=== PATIENT | male | born 1950 | race Caucasian/White ===

== ENCOUNTER 2020-02-10 08:33 | Outpatient (REF) | payer MEDICARE, SELFPAY ==
[2020-02-10 13:18] LABS: MANUAL DIFF FLAG NO
[2020-02-10 13:29] LABS: Basophils Percent Auto 0.6 % (0-2); Eosinophils Absolute Auto 0.1 X10*3/uL (0.0-0.4); Eosinophils Percent Auto 2.3 % (0-4); Hematocrit 48.7 % (42-52); Hemoglobin 16.7 g/dl (14.0-18.0); Imm Gran Abs Auto 0.01 X10*3/uL (0.00-0.03); Imm Gran Pct Auto 0.2 % (0.0-0.4); Lymphocytes Absolute Auto 1.4 X10*3/uL (1.2-4.9); Mean Corpuscular HGB Conc 34.3 g/dl (31.0-36.0); Mean Corpuscular Hemoglobin 32.3 pg (27.0-33.0); Mean Corpuscular Volume 94.2 fL (80-98); Mean Platelet Volume 9.6 fL (9.4-12.4); Monocytes Absolute Auto 0.5 X10*3/uL (0.1-1.2); Monocytes Percent Auto 10.6 % (2-11); Neutrophils Absolute Auto 2.7 X10*3/uL (2.0-8.3); Neutrophils Percent Auto 56.3 % (45-73); Platelet Count 170 X10*3/uL (160-400); Red Blood Count 5.17 X10*6/uL (4.60-5.80); Red Cell Distribution Width 12.8 % (11.0-16.0); White Blood Count 4.8 X10*3/uL (4.8-10.8)
[2020-02-10 14:27] LABS: Alanine Aminotransferase 15 U/L (0-40); Albumin Level 4.3 g/dL (3.5-5.0); Alkaline Phosphatase 69 U/L (39-117); Anion Gap 14 (12-20); Aspartate Amino Transferase 20 U/L (5-37); Bilirubin Total 0.9 mg/dL (0.0-1.0); Blood Urea Nitrogen 17 mg/dL (9-16); Calcium 8.3 mg/dL (8.4-10.2); Carbon Dioxide 26 mmol/L (22-29); Chloride 106 mmol/L (96-108); Cholesterol 186 mg/dL; Estimated Glomerular Filt Rate > 60; Glucose Fasting 84 mg/dL (60-99); HDL Cholesterol 46 mg/dL; LDL Cholesterol Calculated 119 mg/dl; Potassium 4.5 mmol/l (3.3-5.1); Sodium 141 mmol/L (135-145); Total Protein 6.6 g/dL (6.5-8.0); Triglycerides 108 mg/dL
[2020-02-10 14:53] LABS: Prostate Specific Antigen 4.24 ng/mL (<0.05-4.0); Thyroid Stimulating Hormone 2.55 uIU/mL (0.32-4.0); Vitamin D 25-OH Total 37.9 ng/mL (>30)
== END 2020-02-10 08:34 | disposition home or self-care (01) ==
LOC: HO.HMGCLDS 08:33
PROVIDERS: PCP Internal Medicine; Visit Provider Internal Medicine
DX: F32.9 Major depressive disorder, single episode, unspecified (principal); N40.1 Benign prostatic hyperplasia with lower urinary tract symptoms; R09.81 Nasal congestion
CPT/HCPCS: 36415; 80053; 80061; 82306; 84153; 84443; 85025

== ENCOUNTER 2020-02-20 08:26 | Outpatient (REF) | payer MEDICARE, SELFPAY ==
--- NOTE | 2020-02-20 08:29 | CT_ITS ---
EXAMINATION: CT CHEST WITHOUT CONTRAST CLINICAL INFORMATION: Pulmonary nodule follow-up COMPARISON: Previous chest CT March 2019 TECHNIQUE: Multidetector volumetric CT imaging of the chest was done. Axial MIP volume rendering provided. Sagittal and coronal reformatted images were obtained. This CT examination was performed using dose optimization techniques as appropriate, variously including the following: *Automated exposure control *Adjustment of mA and/or kV according to patient size (this includes techniques or standardized protocols for targeted exams where dose is matched to indication/reason for exam; i.e. extremities or head) *Use of iterative reconstruction technique DLP: 201 mGy-cm FINDINGS: LUNGS: There is mild biapical pleural and parenchymal scarring. There is a 3 mm peripheral or subpleural right upper lobe nodule axial image 127 series 7 that is stable. There is a 5 x 8 mm peripheral or subpleural irregularly-shaped abnormal parenchymal density in the right middle lobe nodule adjacent to the major fissure and question an accessory fissure fissure axial image 385 series 7 that is stable. Sagittal and coronal and coronal reconstructions this appears linear suggestive of linear scarring or chronic subsegmental atelectasis. There is new linear scarring or subsegmental atelectasis in the inferior lingula MEDIASTINUM: There is mild coronary artery calcification. The mediastinum is otherwise normal. PLEURA: There is no pleural effusion. No pleural mass or thickening. AXILLA: No lymphadenopathy. UPPER ABDOMEN: Unremarkable. 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 OSSEOUS STRUCTURES: There are degenerative changes of the spine. There may be slight loss of height of the inferior endplate of the L1 vertebral body. This is unchanged. CT/CT chest wo con IMPRESSION: Mild biapical pleural parenchymal scarring. Stable small right upper lobe nodule. Stable probable scarring or subsegmental atelectasis in the right middle lobe. New linear scarring or subsegmental atelectasis in the inferior segment of the lingula. Mild coronary artery calcification.
== END 2020-02-20 08:27 | disposition home or self-care (01) ==
LOC: HO.CT 08:26
PROVIDERS: PCP Internal Medicine; Visit Provider Surgery
DX: R91.1 Solitary pulmonary nodule (principal)
CPT/HCPCS: 71250

== ENCOUNTER → 2020-03-16 11:03 | Outpatient (BNVA) | payer MEDICARE, SELFPAY | PROVIDERS: PCP Internal Medicine; Visit Provider Surgery | DX: R91.1 Solitary pulmonary nodule (principal) | CPT/HCPCS: 99214 ==

== ENCOUNTER 2020-05-29 08:26 | Outpatient (REF) | payer MEDICARE, SELFPAY ==
--- NOTE | ~2020-05-29 | CT_ITS ---
EXAMINATION: CT CHEST WITHOUT CONTRAST CLINICAL INFORMATION: Solitary pulmonary nodule COMPARISON: Previous chest CT scans most recent February 2020 TECHNIQUE: Multidetector volumetric CT imaging of the chest was done. Axial MIP volume rendering provided. Sagittal and coronal reformatted images were obtained. This CT examination was performed using dose optimization techniques as appropriate, variously including the following: *Automated exposure control *Adjustment of mA and/or kV according to patient size (this includes techniques or standardized protocols for targeted exams where dose is matched to indication/reason for exam; i.e. extremities or head) *Use of iterative reconstruction technique DLP: 196 mGy-cm FINDINGS: LUNGS: There is biapical pleural and parenchymal scarring. There is a 3 mm peripheral or subpleural posterior right upper lobe nodule axial image 132 series 8 that is stable. There is an irregularly-shaped abnormal parenchymal density in the right middle lobe near the major fissure. This measures 4 x 9 mm axial image 384 series 8 and does not appear appreciably changed from previous exams. On sagittal and coronal reconstructed images this appears linear and possibly tracks along an accessory fissure. No new pulmonary nodule is seen. No intratracheal or endobronchial lesion is seen. MEDIASTINUM: There is mild coronary artery calcification. The mediastinum is otherwise normal. PLEURA: There is no pleural effusion. No pleural mass or thickening. AXILLA: No lymphadenopathy. UPPER ABDOMEN: Unremarkable. OSSEOUS STRUCTURES: There is mild pectus deformity of the chest. There are degenerative changes of the spine. CT/CT chest wo con IMPRESSION: Stable parenchymal density in the right middle lobe, biapical pleural and parenchymal scarring and small right upper lobe nodule. Mild coronary artery calcification.
== END 2020-05-29 08:27 | disposition home or self-care (01) ==
LOC: HO.CT 08:26
PROVIDERS: Visit Provider Surgery
DX: R91.1 Solitary pulmonary nodule (principal)
CPT/HCPCS: 71250

== ENCOUNTER → 2020-06-15 11:13 | Outpatient (BNVA) | payer MEDICARE, SELFPAY | PROVIDERS: PCP Internal Medicine; Visit Provider Surgery | DX: R91.1 Solitary pulmonary nodule (principal); Z79.899 Other long term (current) drug therapy ==

== ENCOUNTER 2021-01-15 07:42 | Emergency (ER) | payer MEDICARE, SELFPAY ==
--- NOTE | ~2021-01-15 | CT_ITS ---
EXAMINATION: CT HIP WITHOUT CONTRAST, LEFT CLINICAL INFORMATION: Pain. Unable to ambulate. Negative x-rays. COMPARISON: None TECHNIQUE: Axial images through the left hip without contrast. Sagittal and coronal reconstructions on the technologist workstation were performed. This CT examination was performed using dose optimization techniques as appropriate, variously including the following: *Automated exposure control *Adjustment of mA and/or kV according to patient size (this includes techniques or standardized protocols for targeted exams where dose is matched to indication/reason for exam; i.e. extremities or head) *Use of iterative reconstruction technique DLP: 174 mGy-cm FINDINGS: There is moderate arthritis at the left hip joint with joint space narrowing, osteophyte formation and some subchondral cyst formation. No fracture, dislocation or bone lesion is seen. Surrounding soft tissues are normal. There is no joint effusion. Prostate gland is enlarged and protrudes into the base of the bladder. There is diverticulosis of the colon. No ascites or adenopathy is seen. No hernia is seen. There is mild skin thickening and stranding of the fat in the left inferior buttock. CT/CT hip LT wo con IMPRESSION: Left hip arthritis. No fracture or dislocation seen.
[2021-01-15 07:50] VITALS: BP 160/84; BP 161/78; PULSE 89; PULSE 91; RESP 18; TEMP 36.7; O2SAT 96; O2SAT 98; BMI 25.4
--- NOTE | 2021-01-15 07:58 | ED.LOWEXIN ---
HPI - Extremity Injury (Lower) General Chief Complaint: Extremity Injury, Lower Stated Complaint: LEFT HIP PAIN, NO RECENT INJURY Time Seen by Provider: 01/15/21 07:54 Source: patient and EMS Mode of arrival: EMS Limitations: no limitations History of Present Illness complaint: hip injury Onset (ago): week(s) (2) Injury: Left: hip Type of Injury: other (twisting type injury) Place: street/outdoors Severity: moderate Relieving factors: nothing Exacerbating factors: movement and palpation Context: other (injury while outside gardening) Associated symptoms: other (pain will not go away) Other symptoms: none Treatments prior to arrival: other (tried prednisone and flexeril) Related Data Home Medications Medication Instructions Recorded Confirmed flu vac qv 2019(18yr up)rc(PF) ml IM 03/16/20 06/15/20 naproxen 500 mg tablet 500 mg PO BID 03/16/20 06/15/20 sertraline 100 mg tablet 100 mg PO DAILY 03/16/20 06/15/20 tamsulosin 0.4 mg capsule 0.4 mg PO DAILY 03/16/20 06/15/20 Previous Rx's Medication Instructions Recorded cyclobenzaprine 5 mg tablet 5 mg PO TID PRN #10 tab 01/10/21 prednisone 20 mg tablet 20 mg PO DAILY 5 Days #5 tab 01/10/21 diclofenac sodium 1 % topical gel 2 g TOPICAL QID #100 g 01/15/21 (Voltaren Arthritis Pain) Allergies Allergy/AdvReac Type Severity Reaction Status Date / Time Sulfa (Sulfonamide Allergy Unknown hives Verified 01/10/21 11:39 Antibiotics) sulfamethoxazole Allergy Unknown HIVES Verified 01/10/21 11:39 [From Bactrim] trimethoprim [From Bactrim] Allergy Unknown HIVES Verified 01/10/21 11:39 Review of Systems Review of Systems: Constitutional : No Fever, No Chills ENT/Mouth : No Ear Pain, No Hoarseness, No sore throat Eyes: No Eye Pain, No Swelling, No Redness, No Foreign Body Cardiovascular : No Chest Pain, No SOB Respiratory : No Cough, No Dyspnea Gastrointestinal : No Nausea, No Vomiting, No Diarrhea, No abdominal Pain Genitourinary : No Dysuria, No Hematuria Musculoskeletal : positive joint pain, No Myalgias, No Joint Swelling Skin : No Skin lacerations, No rash Neuro : No Weakness, No Numbness, No Loss of Consciousness, No Dizziness, No Headache Psych : No Anxiety/Panic, No Depression Heme/Lymph: no easy bruising, no Lymphadenopathy Endocrine : No Polyuria, No Polydipsia All other systems reviewed and are negative [facility] Past Medical History Attestation statement: The following information was validated with the patient. Medical History BPH (benign prostatic hyperplasia) Depressed Social History Social History (Updated 01/15/21 @ 08:09 by Shayy Brown DO) Alcohol intake: never Patient Tobacco Use Status: Never used Tobacco Use of substances other than those prescribed or required for medical reasons: No Advance Directives: Yes Advance Directives Information Provided: Yes Advance Directives on File: No Physical Exam Vital Signs: Vital Signs: Last Vital Signs Temp 98.1 F 01/15/21 07:50 Pulse 86 01/15/21 09:37 Resp 18 01/15/21 07:50 BP 161/78 H 01/15/21 07:50 Pulse Ox 98 01/15/21 07:50 Body Mass Index 25.4 Appearance: Alert. Oriented X3. No acute distress. Eyes: Pupils equal, round and reactive to light. ENT: Pharynx normal. Neck: Normal inspection. Neck supple. CVS: Normal heart rate and rhythm. Pulses normal. Respiratory: No respiratory distress. Breath sounds normal. Abdomen: Soft and nontender. no hernia mass felt Skin: Skin warm and dry. Normal skin color. Normal skin turgor. Extremities: No lower extremity edema. No calf ttp L hip ttp along lateral aspect no contusion seen Neuro: Oriented X 3. No motor deficit. No sensory deficit. Course Course Course Narrative: CT hip negative, stable for DC MDM - Extremity Injury (Lower) MDM Narrative Medical decision making narrative: 70 yo male with hx of back pain and pulmonary nodules comes in with c/o L hip pain for a couple of weeks - at this time no hernia noted, distal NV intact, no signs of infection, CT scan for occult fracture/mass ordered. Dispo per results and findings. Discharge Plan Discharge Clinical Impression: Arthralgia of hip Qualifiers: Laterality: left Qualified Code(s): M25.552 - Pain in left hip Patient Disposition: Home, Self-Care Instructions: Arthralgia (ED), Hip Pain (ED) Additional Instructions: return to ED for any worsening symptoms or concerns There is moderate arthritis at the left hip joint with joint space narrowing, osteophyte formation and some subchondral cyst formation. No fracture, dislocation or bone lesion is seen. Surrounding soft tissues are normal. There is no joint effusion. Prescriptions: New diclofenac sodium [Voltaren Arthritis Pain] 1 % gel 2 g topical QID Qty: 100 RF: 0 No Action prednisone 20 mg tablet 20 mg PO DAILY 5 Days Qty: 5 RF: 0 cyclobenzaprine 5 mg tablet 5 mg PO TID PRN (Reason: muscle spasm) Qty: 10 RF: 0 sertraline 100 mg tablet 100 mg PO DAILY RF: 0 tamsulosin 0.4 mg capsule 0.4 mg PO DAILY RF: 0 Flublok Quad [id number] (PF) 180 mcg (45 mcg x 4)/0.5 mL syringe IM RF: 0 naproxen 500 mg tablet 500 mg PO BID RF: 0 Referrals: Colton Wang MD, DO [Primary Care Provider] - 2 days (if not better)
[2021-01-15 09:37] VITALS: PULSE 86
== END 2021-01-15 10:42 | disposition home or self-care (01) ==
PROVIDERS: Emergency Provider Emergency Medicine; PCP Internal Medicine
DX: S73.102A Unspecified sprain of left hip, initial encounter (principal); M25.552 Pain in left hip; M54.50 Low back pain, unspecified; X50.1XXA Overexertion from prolonged static or awkward postures, initial encounter; Y93.9 Activity, unspecified; Y92.9 Unspecified place or not applicable; Y99.9 Unspecified external cause status; Z79.899 Other long term (current) drug therapy
CPT/HCPCS: 73700; 99284

== ENCOUNTER 2021-01-31 08:19 | Outpatient (REF) | payer MEDICARE, SELFPAY ==
--- NOTE | ~2021-01-31 | XR_ITS ---
EXAMINATION: XR PELVIS CLINICAL INFORMATION: Pain COMPARISON: 01/15/2021 TECHNIQUE: AP view of the pelvis. FINDINGS: No fracture or dislocation. The hips are well aligned. Mild degenerative change of both hips with subchondral sclerosis. The pelvic rim is intact. The sacroiliac joints and pubic symphysis are intact. Nonobstructive bowel gas pattern. XR/XR pelvis 1-2V IMPRESSION: Mild degenerative changes of the hips.
== END 2021-01-31 08:20 | disposition home or self-care (01) ==
LOC: HO.HOSX 08:19
PROVIDERS: PCP Internal Medicine; Visit Provider Orthopaedic Surgery
DX: M54.16 Radiculopathy, lumbar region (principal)
CPT/HCPCS: 72170; 99212

== ENCOUNTER 2021-02-18 07:30 | Outpatient (REF) | payer MEDICARE, SELFPAY ==
[2021-02-18 11:42] LABS: MANUAL DIFF FLAG NO
[2021-02-18 11:47] LABS: Appearance Urine HAZY; Color Urine YELLOW; Glucose Urine UA NEG (NEG); Leukocyte Esterase Urine NEG (NEG); Nitrite Urine NEG (NEG); PH 6.5 (5.0-8.0); Urine Blood NEG (NEG); Urine Ketones NEG (NEG); Urine Protein NEG (NEG-TRACE)
[2021-02-18 11:50] LABS: Basophils Absolute Auto 0.1 X10*3/uL (0.0-0.2); Basophils Percent Auto 0.8 % (0-2); Eosinophils Absolute Auto 0.1 X10*3/uL (0.0-0.4); Eosinophils Percent Auto 0.7 % (0-4); Hematocrit 46.4 % (42.0-52.0); Hemoglobin 15.9 g/dl (14.0-18.0); Imm Gran Abs Auto 0.02 X10*3/uL (0.00-0.03); Imm Gran Pct Auto 0.3 % (0.0-0.4); Lymphocytes Absolute Auto 1.8 X10*3/uL (1.2-4.9); Lymphocytes Percent Auto 23.7 % (20-40); Mean Corpuscular HGB Conc 34.3 g/dl (31.0-36.0); Mean Corpuscular Hemoglobin 31.7 pg (27.0-33.0); Mean Corpuscular Volume 92.6 fL (80.0-98.0); Mean Platelet Volume 10.1 fL (9.4-12.4); Monocytes Absolute Auto 0.7 X10*3/uL (0.1-1.2); Monocytes Percent Auto 9.9 % (2-11); Neutrophils Absolute Auto 4.8 x10*3/uL (2.0-8.3); Neutrophils Percent Auto 64.6 % (45-73); Platelet Count 221 X10*3/uL (160-400); Red Blood Count 5.01 X10*6/uL (4.60-5.80); Red Cell Distribution Width 12.4 % (11.0-16.0); White Blood Count 7.4 X10*3/uL (4.8-10.8)
[2021-02-18 12:11] LABS: RBC Urine 0 /HPF (0); WBC Urine 0-2 /HPF (0-4)
[2021-02-18 12:30] LABS: Alanine Aminotransferase 21 U/L (0-40); Albumin Level 4.2 g/dL (3.5-5.0); Alkaline Phosphatase 70 U/L (39-117); Anion Gap 16 (12-20); Aspartate Amino Transferase 16 U/L (5-37); Blood Urea Nitrogen 17 mg/dL (9-16); Calcium 8.9 mg/dL (8.4-10.2); Carbon Dioxide 23 mmol/L (22-29); Chloride 106 mmol/L (96-108); Cholesterol 201 mg/dL; Estimated Glomerular Filt Rate > 60; Glucose Fasting 95 mg/dL (60-99); HDL Cholesterol 47 mg/dL; LDL Cholesterol Calculated 129 mg/dl; Potassium 4.2 mmol/L (3.3-5.1); Sodium 141 mmol/L (135-145); Total Protein 6.8 g/dL (6.5-8.0); Triglycerides 129 mg/dL
[2021-02-18 12:40] LABS: PSA,Total (Free>4and<10) 5.61 ng/mL (0.00-4.00)
[2021-02-19 12:42] LABS: Free Prostate Spec Ag 0.7 ng/mL; Percent Free Prostate Spec Ag 13 % (calc) (>25); Prostate Specific Ag Total 5.6 ng/mL (< OR = 4.0)
== END 2021-02-18 07:31 | disposition home or self-care (01) ==
LOC: HO.HMGCLDS 07:30
PROVIDERS: PCP Internal Medicine; Visit Provider Internal Medicine
DX: Z12.5 Encounter for screening for malignant neoplasm of prostate (principal); N40.1 Benign prostatic hyperplasia with lower urinary tract symptoms; F32.9 Major depressive disorder, single episode, unspecified; M16.12 Unilateral primary osteoarthritis, left hip
CPT/HCPCS: 36415; 80053; 80061; 81001; 84153; 84154; 85025

== ENCOUNTER 2021-05-30 08:44 | Outpatient (REF) | payer MEDICARE, SELFPAY ==
--- NOTE | ~2021-05-30 | CT_ITS ---
EXAMINATION: CT CHEST WITHOUT CONTRAST CLINICAL INFORMATION: Solitary pulmonary nodule COMPARISON: CT chest 05/29/2020 TECHNIQUE: Multidetector volumetric CT imaging of the chest was done. Axial MIP volume rendering provided. Sagittal and coronal reformatted images were obtained. This CT examination was performed using dose optimization techniques as appropriate, variously including the following: *Automated exposure control *Adjustment of mA and/or kV according to patient size (this includes techniques or standardized protocols for targeted exams where dose is matched to indication/reason for exam; i.e. extremities or head) *Use of iterative reconstruction technique DLP: 190 mGy-cm FINDINGS: TRANSPORT TECH: Well-expanded lungs. LUNGS: There is bilateral apical nodular pleural thickening and parenchymal scarring. There is a 3 mm pleural-based nodule right upper lobe, axial image 105/5, a 7 mm density right middle lobe adjacent to major fissure, axial image 324/5. No new pulmonary nodules seen. MEDIASTINUM: The thyroid lobes are symmetrical and normal. The central trachea and bronchi are widely patent. Heart size and the great vessels are normal caliber. No abnormal-sized mediastinal or hilar lymph nodes or mass. There is no pericardial effusion. PLEURA: There is no pleural effusion. No pleural mass or thickening. AXILLA: No lymphadenopathy. UPPER ABDOMEN: Visualized liver, spleen, pancreas and bilateral adrenal glands are unremarkable. OSSEOUS STRUCTURES: No lytic or sclerotic process seen. CT/CT chest wo con IMPRESSION: Stable bilateral apical pleural and parenchymal scarring. There is a stable right upper lobe nodule in the right middle lobe density. It measures 7 mm. Previously it measured 9 mm. Fleischner guidelines were followed.
== END 2021-05-30 08:45 | disposition home or self-care (01) ==
LOC: HO.CT 08:44
PROVIDERS: Visit Provider Surgery
DX: R91.1 Solitary pulmonary nodule (principal)
CPT/HCPCS: 71250

== ENCOUNTER → 2021-06-14 09:38 | Outpatient (BNVA) | payer MEDICARE, SELFPAY | PROVIDERS: PCP Internal Medicine; Visit Provider Surgery | DX: R91.1 Solitary pulmonary nodule (principal); Z79.899 Other long term (current) drug therapy | CPT/HCPCS: 99212 ==

== ENCOUNTER 2021-10-14 10:52 | Emergency (ER) | payer MEDICARE, SELFPAY ==
--- NOTE | ~2021-10-14 | US_ITS ---
EXAMINATION: US SCROTUM CLINICAL INFORMATION: Right testicle pain. COMPARISON: None TECHNIQUE: A sonogram of the scrotum was performed assessing broussard-scale appearance and color Doppler flow. Spectral Doppler analysis of the arterial and venous flow were performed in the testes bilaterally. FINDINGS: RIGHT: Right testicle measures 4.8 x 2.7 x 3 cm, volume 20 mL. No focal testicular parenchymal lesions are visualized. Spectral Doppler analysis of the arterial and venous flow is normal in the right testis. There is a small 5 x 3 x 3 mm epididymal head cyst.. No right hydrocele or varicocele is seen. Right epididymal Doppler flow is normal. There is increased soft tissue in the right inguinal canal questionable for a hernia. LEFT: Left testicle measures 5 x 2 x 2.4 cm, volume 13 mL. No focal testicular parenchymal lesions are visualized. Spectral Doppler analysis of the arterial and venous flow is normal in the left testis. There are several left epididymal head cysts, largest measuring 8 x 5 x 7 mm and 5 x 7 x 8 mm. Small left hydrocele. No left varicocele is seen. Left epididymal Doppler flow is normal. US/US scrotum IMPRESSION: Normal-appearing testicles. Bilateral epididymal head cysts, left greater than right. Small left hydrocele. Question right inguinal hernia.
--- NOTE | ~2021-10-14 | US_ITS ---
EXAMINATION: US SCROTUM CLINICAL INFORMATION: Right testicle pain. COMPARISON: None TECHNIQUE: A sonogram of the scrotum was performed assessing broussard-scale appearance and color Doppler flow. Spectral Doppler analysis of the arterial and venous flow were performed in the testes bilaterally. FINDINGS: RIGHT: Right testicle measures 4.8 x 2.7 x 3 cm, volume 20 mL. No focal testicular parenchymal lesions are visualized. Spectral Doppler analysis of the arterial and venous flow is normal in the right testis. There is a small 5 x 3 x 3 mm epididymal head cyst.. No right hydrocele or varicocele is seen. Right epididymal Doppler flow is normal. There is increased soft tissue in the right inguinal canal questionable for a hernia. LEFT: Left testicle measures 5 x 2 x 2.4 cm, volume 13 mL. No focal testicular parenchymal lesions are visualized. Spectral Doppler analysis of the arterial and venous flow is normal in the left testis. There are several left epididymal head cysts, largest measuring 8 x 5 x 7 mm and 5 x 7 x 8 mm. Small left hydrocele. No left varicocele is seen. Left epididymal Doppler flow is normal. US/US scrotum doppler IMPRESSION: Normal-appearing testicles. Bilateral epididymal head cysts, left greater than right. Small left hydrocele. Question right inguinal hernia.
[2021-10-14 11:12] VITALS: BP 123/75; PULSE 78; RESP 18; TEMP 36.6; O2SAT 98; BMI 24.4
[2021-10-14 11:37] LABS: Appearance Urine CLEAR; Color Urine YELLOW; Glucose Urine UA NEG (NEG); Leukocyte Esterase Urine NEG (NEG); Nitrite Urine NEG (NEG); PH 5.5 (5.0-8.0); Specific Gravity - Urine 1.025 (1.005-1.025); UACC Culture Trigger NO; Urine Blood TRACE (NEG); Urine Ketones 5 MG/DL (NEG); Urine Protein NEG (NEG-TRACE)
[2021-10-14 11:50] LABS: Squamous Epithelial Cell Urine TRACE /LPF
[2021-10-14 11:51] LABS: RBC Urine 0-2 /HPF (0); WBC Urine 0 /HPF (0-4)
== END 2021-10-14 20:28 | disposition left against medical advice (07) ==
PROVIDERS: Emergency Provider Emergency Medicine; PCP Internal Medicine
DX: K44.9 Diaphragmatic hernia without obstruction or gangrene (principal); N50.811 Right testicular pain; R10.30 Lower abdominal pain, unspecified; Z79.899 Other long term (current) drug therapy
CPT/HCPCS: 76870; 81001; 93975; 99282; 99284

== ENCOUNTER → 2021-10-18 11:29 | Outpatient (BNVA) | payer MEDICARE, SELFPAY | PROVIDERS: PCP Internal Medicine; Visit Provider Surgery | DX: K40.90 Unilateral inguinal hernia, without obstruction or gangrene, not specified as recurrent (principal) | CPT/HCPCS: 99202 ==

== ENCOUNTER → 2021-11-08 11:30 | Outpatient (BNVA) | payer MEDICARE, SELFPAY | PROVIDERS: PCP Internal Medicine; Visit Provider Urology | DX: N40.0 Benign prostatic hyperplasia without lower urinary tract symptoms (principal) | CPT/HCPCS: 51798; 99212 ==

== ENCOUNTER 2021-11-14 07:25 | Day surgery (SDC) | payer MEDICARE, SELFPAY ==
[2021-11-07 14:12] VITALS: BMI 23.7
--- NOTE | 2021-11-13 11:44 | HO.ANESPROP2 ---
Documented by User: Lindsay Dudley NP 11/13/21 11:45 HPI - Anesthesia Eval Consult details Narrative: 71yo M for Hernia Repair Inguinal with mesh PMFSH Active Problems Active Problems: All Active Problems (Updated 11/07/21 @ 14:11 by Lacy Bowen, RN) Pulmonary nodule (Acute) Back pain (Acute) Lumbar radiculopathy (Acute) Right inguinal hernia (Acute) BPH (benign prostatic hyperplasia) (Acute) Past Medical History Medical History (Updated 11/07/21 @ 14:11 by Lacy Bowen RN) Arthritis BPH (benign prostatic hyperplasia) Depression Surgical History Surgical History (Updated 11/07/21 @ 13:27 by Lacy Bowen, FILIBERTO) History of carpal tunnel release History of colonoscopy History of left inguinal hernia repair History of prostate biopsy History of tonsillectomy Hx of sinus surgery Social History Social History Are you a primary career guidance counselor to a significant other at home: No Do you presently have visiting nurse or other home services: No Alcohol intake: never Patient Tobacco Use Status: Never used Tobacco Use of substances other than those prescribed or required for medical reasons: No Have you been hit, kicked, punched, or otherwise hurt by someone within the past year? If so, by whom?: No Are you DNR?: No Advance Directives: No Advance Directives Information Provided: Yes Recently lost weight without trying: No Eating poorly because of decreased appetite: No Nutrition Risks: No Nutritional Risk Meds Allergies Allergy/AdvReac Type Severity Reaction Status Date / Time Sulfa (Sulfonamide Allergy Unknown hives Verified 11/08/21 11:46 Antibiotics) sulfamethoxazole Allergy Unknown HIVES Verified 11/08/21 11:46 [From Bactrim] trimethoprim [From Bactrim] Allergy Unknown HIVES Verified 11/08/21 11:46 Home Medications Medication Instructions Recorded Confirmed Last Taken Type sertraline 100 mg tablet 100 mg PO DAILY 03/16/20 11/07/21 Unknown History tamsulosin 0.4 mg capsule 0.4 mg PO DAILY 03/16/20 11/07/21 11/08/21 History fluticasone propionate 50 1 spray intranasal DAILY 11/07/21 11/07/21 Unknown History mcg/actuation nasal spray,suspension eevhwvewopqo-gmbtpeee-rdlsse tablet 1 tab PO DAILY 11/07/21 11/07/21 Unknown History naproxen 500 mg tablet 250 mg PO BID PRN Pain 11/07/21 11/07/21 11/07/21 History Exam Exam Date and Time: November 13, 2021 1144 Height,Weight and Vital Signs: Height 6 ft 1 in Weight 81.647 kg Assessment and Plan Assessment Anesthesia Assessment: Chart Reviewed Documented by User: Farhan Archibald MD 11/14/21 08:22 [facility] Past Medical History Medical History (Updated 11/07/21 @ 14:11 by Lacy Bowen RN) Arthritis BPH (benign prostatic hyperplasia) Depression Family History Family history of problems with anesthesia: No Surgical History Surgical History (Updated 11/07/21 @ 13:27 by Lacy Bowen RN) History of carpal tunnel release History of colonoscopy History of left inguinal hernia repair History of prostate biopsy History of tonsillectomy Hx of sinus surgery History of Problems with Anesthesia: No Social History Social History Are you a primary career guidance counselor to a significant other at home: No Do you presently have visiting nurse or other home services: No Alcohol intake: never Patient Tobacco Use Status: Never used Tobacco Use of substances other than those prescribed or required for medical reasons: No Have you been hit, kicked, punched, or otherwise hurt by someone within the past year? If so, by whom?: No Are you DNR?: No Advance Directives: No Advance Directives Information Provided: Yes Recently lost weight without trying: No Eating poorly because of decreased appetite: No Nutrition Risks: No Nutritional Risk Meds Allergies Allergy/AdvReac Type Severity Reaction Status Date / Time Sulfa (Sulfonamide Allergy Unknown hives Verified 11/08/21 11:46 Antibiotics) sulfamethoxazole Allergy Unknown HIVES Verified 11/08/21 11:46 [From Bactrim] trimethoprim [From Bactrim] Allergy Unknown HIVES Verified 11/08/21 11:46 Home Medications Medication Instructions Recorded Confirmed Last Taken Type sertraline 100 mg tablet 100 mg PO DAILY 03/16/20 11/07/21 Unknown History tamsulosin 0.4 mg capsule 0.4 mg PO DAILY 03/16/20 11/07/21 11/08/21 History fluticasone propionate 50 1 spray intranasal DAILY 11/07/21 11/07/21 Unknown History mcg/actuation nasal spray,suspension vvueuhyuzwmn-clpoeamw-nnbapx tablet 1 tab PO DAILY 11/07/21 11/07/21 Unknown History naproxen 500 mg tablet 250 mg PO BID PRN Pain 11/07/21 11/07/21 11/07/21 History Exam Airway Mallampati Class: II TM Dist: >3cm Neck ROM: Full Assessment and Plan Assessment Anesthesia Assessment: Anesthesia Plan Discussed Final Anesthetic Review Family History of Problems with Anesthesia: No History of Problems with Anesthesia: No NPO: Yes ASA Class: II Final Preanesthetic Review: No Changes in Pt Med Stat, Meds/Allgs Chart Reviewed, Consent Obtained/Reviewed and Anes Risks/Benef Reviewed Patient Risk: Low Procedure Risk: Low Anesthetic Plan Anesthetic Plan: GA Disposition: Standard PACU
[2021-11-14] VITALS (7 sets, daily range): BP systolic 127–143; BP diastolic 65–75; PULSE 47–73; RESP 12–17; TEMP 36.1–36.6; O2SAT 96–100
--- NOTE | 2021-11-14 08:17 | PC.NURSE ---
pt with right bundle branch block on monitor, asymptomatic. Dr. Archibald aware & ekg ordered & done.
[2021-11-14] MEDS: Lactated Ringers 1,000 ML 100 ML IVCONT (08:20)
--- NOTE | 2021-11-14 08:30 | ECG_ITS ---
Test Reason : PREOP BASELINE Blood Pressure : / mmHG Vent. Rate : 067 BPM Atrial Rate : 067 BPM P-R Int : 180 ms QRS Dur : 140 ms QT Int : 448 ms P-R-T Axes : 032 -49 000 degrees QTc Int : 473 ms Normal sinus rhythm Left axis deviation Left bundle branch block Abnormal ECG When compared with ECG of 02-JAN-2009 14:31, Left bundle branch block is now Present Referred By: Farhan Archibald Electronically Signed By:LYLE VICK
--- NOTE | 2021-11-14 08:59 | PC.NURSE ---
[address] Archibald via [employer] of pt's 12 lead ekg revealing left bundle branch block no ekg for comparison. pt continues to deny chest pain, shortness of breath, dizziness/lightheadedness. pt initially stated he had chest pain in approximately 1989 when going through divorce he may had chest pain and went to [place] (no longer a hospital) that required no treatment & was related to anxiety/stress of his divorce. 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
--- NOTE | 2021-11-14 09:06 | PC.NURSE ---
pt consented to and was shaved bilat groins and abdomen per Dr. Alexandra instructions.
--- NOTE | 2021-11-14 10:12 | HO.ANESPROP2 ---
HPI - Anesthesia Eval Consult details Narrative: As pt's EKG on monitor showed wider QRS, I ordered 12 lead EKG, which showed LBBB. Pt denies any recent CP, SOB episode or other change in his medical condition. He has good exercise tolerance, cuts wood, carry laundry to the second floor . His last EKG was in 2008 on record with voltage criteria for LVH. His PCP's office is not open today. I discussed the risks with Pt in thorough details and decided to proceed with the low risk surgery. [facility] Active Problems Active Problems: All Active Problems (Updated 11/07/21 @ 14:11 by Lacy Bowen, RN) Pulmonary nodule (Acute) Back pain (Acute) Lumbar radiculopathy (Acute) Right inguinal hernia (Acute) BPH (benign prostatic hyperplasia) (Acute) Past Medical History Medical History (Updated 11/07/21 @ 14:11 by Lacy Bowen, RN) Arthritis BPH (benign prostatic hyperplasia) Depression Family History Family history of problems with anesthesia: No Surgical History Surgical History (Updated 11/07/21 @ 13:27 by Lacy Bowen RN) History of carpal tunnel release History of colonoscopy History of left inguinal hernia repair History of prostate biopsy History of tonsillectomy Hx of sinus surgery History of Problems with Anesthesia: No Social History Social History Are you a primary women's health care nurse practitioner to a significant other at home: No Do you presently have visiting nurse or other home services: No Alcohol intake: never Patient Tobacco Use Status: Never used Tobacco Use of substances other than those prescribed or required for medical reasons: No Have you been hit, kicked, punched, or otherwise hurt by someone within the past year? If so, by whom?: No Are you DNR?: No Advance Directives: No Advance Directives Information Provided: Yes Recently lost weight without trying: No Eating poorly because of decreased appetite: No Nutrition Risks: No Nutritional Risk Meds Allergies Allergy/AdvReac Type Severity Reaction Status Date / Time Sulfa (Sulfonamide Allergy Unknown hives Verified 11/08/21 11:46 Antibiotics) sulfamethoxazole Allergy Unknown HIVES Verified 11/08/21 11:46 [From Bactrim] trimethoprim [From Bactrim] Allergy Unknown HIVES Verified 11/08/21 11:46 Active Medications: Current Medications Fentanyl (Fentanyl Citrate/Pf 100 Mcg/2 Ml Vial) 50 mcg IVPUSH Q5M PRN; Protocol PRN Reason: Pain, Severe (Pain Scale 7-10) Lactated Ringer's (Lr) 1,000 mls @ 100 mls/hr IVCONT .Q10H [facility] Last Admin: 11/14/21 08:20 Dose: 100 mls/hr Ondansetron HCl (Ondansetron Hcl 4 Mg/2 Ml Vial) 4 mg IVPUSH ONCE PRN PRN Reason: Nausea and Vomiting Oxycodone HCl (Oxycodone Hcl Immed Release 5 Mg Tablet) 5 mg PO ONCE PRN PRN Reason: Pain, Severe (Pain Scale 7-10) Sodium Chloride (0.9 % Sodium Chloride Flush 3 Ml Syringe) 3 ml IVFLUSH QSHIFT [facility] Home Medications Medication Instructions Recorded Confirmed Last Taken Type sertraline 100 mg tablet 100 mg PO DAILY 03/16/20 11/07/21 Unknown History tamsulosin 0.4 mg capsule 0.4 mg PO DAILY 03/16/20 11/07/21 11/08/21 History fluticasone propionate 50 1 spray intranasal DAILY 11/07/21 11/07/21 Unknown History mcg/actuation nasal spray,suspension ybvicgacaznr-xkuvkrnq-myjjux tablet 1 tab PO DAILY 11/07/21 11/07/21 Unknown History naproxen 500 mg tablet 250 mg PO BID PRN Pain 11/07/21 11/07/21 11/07/21 History Exam Exam Date and Time: November 14, 2021 1012 Height,Weight and Vital Signs: Height 6 ft 1 in Weight 81.647 kg Last Vital Signs Temp 97.9 F 11/14/21 07:56 Pulse 73 11/14/21 07:56 Resp 17 11/14/21 07:56 BP 127/74 11/14/21 07:56 Pulse Ox 96 11/14/21 07:56 O2 Del Method 11/14/21 07:56 Assessment and Plan Final Anesthetic Review Family History of Problems with Anesthesia: No History of Problems with Anesthesia: No
--- NOTE | 2021-11-14 10:14 | P.OP_ITS ---
Operative Note Operative Note Date of Service: 11/14/21 Narrative: Pre Op Diagnosis: RIGHT INGUINAL HERNIA Post Op Diagnosis: SAME (indirect) Procedure: Open RIGHT Indirect Inguinal hernia repair with mesh Surgeon: Vipin Alexandra MD Assist: Lynne Goldstein PA-C Anesthesia: General LMA, 0.5% Ropivicaine EBL: 5cc Specimen: Hernia sac Findings: Indirect RIH, no bowel or bladder in sac Indications: The patient presented with a symptomatic RIGHT iinguinal hernia. The options including continued observation versus operative repair and 2nd opinion were discussed. The inherent risks to open inguinal hernia repair were discussed and options of laparoscopic or robotic/MIS repair were discussed. These risks of hernia surgery include, but are not limited to: Bleeding, infection, hernia recurrence especially if weight gain or postoperative instructions are not followed, nerve entrapment, chronic pain, mesh complications that could require reoperation. The patient seemed to understand all of these options, had their questions answered and wanted to proceed. Procedure: The patient was identified in the preoperative holding area by myself and the operative site marked by me confirming a RIGHT inguinal hernia. The patient voided there bladder traffic control officer, received antibiotics per protocol and sequential compression stockings were in place. The operative field hair had been clipped in preop holding. The patient was again identified in the operating suite and placed supine on the table. See anesthesia notes for full details regarding anesthesia care and management. An appropriate time-out was performed confirming the operative site and procedure. The patient was then widely prepped and draped in the usual manner using chlorhexidine. An ileoinguinal nerve block was performed using ropivicaine and a standard inguinal herniorrhaphy incision made sharply through the skin. Dissection was carried through all layers using electric cautery for dissection and hemostasis. Additional local was infiltrated is the external oblique aponeurosis, in the external oblique aponeurosis opened sharply in the direction of its fibers to the external ring. The ilioinguinal nerve was identified and preserved/sacrificed through the dissection. The cord was mobilized at the level of the pubic tubercle and surrounded with hernia tape. The floor was inspected and no direct hernia found. Careful dissection of the spermatic cord to preserve the vessels and vas was performed to assess for indirect hernia sac. The hernia sac was highly dissected, opened, its contents reduced and suture ligation performed. Next, the floor was imbricated using a 2-0 Polysorb and a standard Keesha tension-free herniorrhaphy performed using polypropylene patch that was sutured to the pubic tubercle and inguinal ligament using a 2-0 Polysorb. A new internal ring was made using 2-0 polypropylene suture. The new internal ring was snug enough that it could just accommodate a tip of a hemostat. Next, the operative field was inspected for hemostasis which was good, the external oblique aponeurosis was closed with a running 0 Polysorb suture, subcutaneous tissues closed with 3-0 Polysorb and skin closed with running 4-0 Monocryl subcuticular suture. The abdomen was washed and dried, Mastisol and Steri-Strips applied followed by a sterile dressing. Patient tolerated the procedure well was sent to the recovery area in stable condition. All sponge and instrument counts were correct x2. At the patient's request, I contact his , Susan at [phone] and apprise her by telephone of the procedure. Instructions regarding activity and pain management were reviewed. Questions were answered.
--- NOTE | 2021-11-14 10:14 | MHC.SHP ---
Pre-Procedural Eval Section A Date of Service: 11/14/21 The patient is an INPATIENT: No The History & Physical has been completed within 30 days and I have reviewed it.: Yes Section B Chief Complaint: Unilateral inguinal hernia, without obstruction Allergies: Allergies Allergy/AdvReac Type Severity Reaction Status Date / Time Sulfa (Sulfonamide Allergy Unknown hives Verified 11/08/21 11:46 Antibiotics) sulfamethoxazole Allergy Unknown HIVES Verified 11/08/21 11:46 [From Bactrim] trimethoprim [From Bactrim] Allergy Unknown HIVES Verified 11/08/21 11:46 Plan I have reviewed the history and physical and performed a pertinent physical examination on my patient. No changes have occurred unless specified.
--- NOTE | 2021-11-14 10:37 | PC.NURSE ---
0955 decision to proceed with surgery, pt agrees to seek treatment postop. very active at home and no further episodes
== END 2021-11-14 13:55 | disposition home or self-care (01) ==
LOC: HO.SSS 07:26
PROVIDERS: PCP Internal Medicine; Visit Provider Surgery
PROC: (CPT 49505; principal; 2021-11-14 09:20)
DX: K40.90 Unilateral inguinal hernia, without obstruction or gangrene, not specified as recurrent (principal); N40.0 Benign prostatic hyperplasia without lower urinary tract symptoms; R91.1 Solitary pulmonary nodule; F32.A Depression, unspecified; Z79.1 Long term (current) use of non-steroidal anti-inflammatories (NSAID); Z79.899 Other long term (current) drug therapy; Z88.2 Allergy status to sulfonamides; Z98.890 Other specified postprocedural states
CPT/HCPCS: 49505; 88302; 93005; C1781; J0690; J1100; J2250; J2405; J2795; J3010

== ENCOUNTER → 2021-11-21 12:51 | Outpatient (BNVA) | payer MEDICARE, SELFPAY | PROVIDERS: PCP Internal Medicine; Referring Provider Internal Medicine; Visit Provider Internal Medicine | DX: I44.7 Left bundle-branch block, unspecified (principal) | CPT/HCPCS: 99202 ==

== ENCOUNTER → 2021-11-22 10:01 | Outpatient (BNVA) | payer MEDICARE, SELFPAY | PROVIDERS: PCP Internal Medicine; Visit Provider Surgery | DX: K40.90 Unilateral inguinal hernia, without obstruction or gangrene, not specified as recurrent (principal) | CPT/HCPCS: 99212 ==

== ENCOUNTER → 2021-11-28 13:48 | Outpatient (REF) | payer MEDICARE, SELFPAY ==
--- NOTE | 2021-11-28 13:52 | CA_ITS ---
Transthoracic Echocardiogram Patient (Last, First, Middle): Raúl Thurman C Gender: Male Date of : 1950 Age: 71 Procedure Date: 11/28/2021 Procedure Type: Transthoracic Echocardiogram Location: OP Height: 185.42 cm Weight: 81.65 kg BSA: 2.06 m2 Heart Rate: 79 bpm BP: 130 / 80 mmHg Stem Roller Or Crusher Operator: SB Referring MD: Kwame Patricio MD Symptoms: I44.7 - Left bundle-branch block, unspecified Study Quality: Adequate w contrast ECG Rhythm: Sinus Conclusions: - The left ventricular systolic function is moderately decreased. The calculated ejection fraction is 36% by biplane method. - No obvious valvular pathology seen on this study. Findings Procedure Information Contrast agent, definity, is being given per protocol without apparent complications. Left Ventricle Normal left ventricular cavity size. There is moderately increased left ventricular wall thickness. The left ventricular systolic function is moderately decreased. The calculated ejection fraction is 36% by biplane method. There is paradoxical septal motion consistent with a left bundle branch block. Diastolic function is normal for age. Right Ventricle Normal right ventricular cavity size and systolic function. Atria Both atria are normal in size. Aortic Valve There is a normal trileaflet aortic valve. There is no aortic valve stenosis. There is trace (trivial) aortic valve regurgitation. Mitral Valve The mitral valve appears normal. There is no mitral valve regurgitation. There is no mitral valve stenosis. Pulmonic Valve The pulmonic valve is likely normal. Tricuspid Valve There is trace tricuspid valve regurgitation. Tricuspid regurgitation envelope is inadequate for calculation of right ventricular systolic pressure. Great Vessels The asc aorta is normal in size. Venous The inferior vena cava is normal in size and collapses greater than 50% with inspiration. Pericardium/Pleural There is no evidence of pericardial effusion. Prior Study Comparison No prior study available for comparison. Recommendations, Care & Conclusions No obvious valvular pathology seen on this study. Measurements 2D Linear Measurements IVSd: 1.63 0.6-0.9/0.6-1.0 cm LVIDd: 4.35 3.9-5.3/4.2-5.9 cm LVIDd Index: 2.11 2.4-3.2/2.2-3.1 cm/m2 LVIDs: 3.53 2.0-3.6 cm LVPWd: 1.25 0.7-1.1 cm LA Diam: 3.40 2.7-3.8/3.0-4.0 cm LAIDs Index: 1.65 1.5-2.3 cm/m2 LV Mass: 307.44 67-162/88-224 g LV Mass Index: 149.25 43-95/49-115 g/m2 LVOT Diam: 2.50 3.0+(-)1.3 cm 2D Systolic Function EF 4C: 39.60 >55% EF 2C: 32.00 >55% EF BiP: 36.10 >55% Mitral Valve MV Pk E: 0.73 MV PK A: 0.90 MV Decel Time: 221.00 E/A: 0.80 E'Lateral: 6.42 E'Medial: 4.57 E/E' Med: 16.00 E/E' Lat: 11.40 PHT: 65.00 MVA PHT: 3.38 Decel [place]: 3.32 Aortic Valve AoV Pk Gerson: 1.10 AoV Mn Gerson: 0.84 AoV VTI: 0.20 AoV Pk Grad: 5.00 Aov Mn Grad: 3.00 CHARLETTE Cont.VTI: 3.65 LVOT LVOT Pk Gerson: 0.85 LVOT Mn Gerson: 0.60 LVOT VTI: 0.15 LVOT Pk Grad: 3.00 LVOT Mn Grad: 2.00 LVOT Diam: 2.50 LVOT Area: 4.91 Diastolic Function MV Pk E: 0.73 MV Pk A: 0.90 E/A: 0.80 E'Medial: 4.57 E/E' Med: 16.00 E' Laterial: 6.42 E/E' Lat: 11.40 Right Ventricle TAPSE (mm): 17.50 TVS' Gerson: 10.20 Tricuspid Valve RA Press: 3.00 Great Vessels Aorta Sinus of Valsalva: 3.30 2.0-3.5 cm Ao Asc: 3.90 2.1-3.4 cm Pulmonary Valve PV Pk Gerson: 1.22 Peak PV Grad: 6.00 Updated in Other Vendor System with Status of Final Kwame Patricio MD electronically signed on 11/29/2021 8:46:24 AM with status of Final
== END ==
LOC: HO.CARD 13:48
PROVIDERS: Visit Provider Internal Medicine
DX: I44.7 Left bundle-branch block, unspecified (principal)
CPT/HCPCS: 93306; Q9957

== ENCOUNTER → 2021-12-10 09:00 | Outpatient (REF) | payer MEDICARE, SELFPAY ==
--- NOTE | ~2021-12-10 | NM_ITS ---
Lexiscan Myocardial perfusion study Indication: Left bundle branch block, assess for coronary disease and ischemia Technique: The patient was brought in for a Lexiscan perfusion study on 12/10/2021 and was injected 0.4 mg of Lexiscan intravenously. Within a minute of this injection 25 mCi of sestamibi was given intravenously. Images were obtained using the SPECT gamma camera interlaced with the gating device. Images were obtained in supine position. Resting perfusion study was performed on 12/11/2021. Patient was administered 25 mCi of sestamibi intravenously at rest. Images were then obtained in supine position. Total DLP 92mGy-cm. Images were processed with the software and compared side to side in short axis, horizontal long axis and vertical long axis views. Findings: Raw acquisition reviewed. The stress perfusion study showed diminished tracer uptake in the basal part of inferior wall. There is improvement with CT attenuation correction suggestive of diaphragmatic attenuation artifact. The gated study shows diminished LV systolic function with calculated LVEF of 37%. LV cavity is normal in size. The gated study shows diminished basal contractility. Resting study shows mildly diminished tracer uptake in the basal inferior/inferolateral wall. There is improvement with CT attenuation correction suggestive of diaphragmatic attenuation artifact. Gating at rest reveals diminished basal inferior contractility, LVEF 39%. The findings are consistent with fixed basal inferior defect suspected to be from diaphragmatic attenuation artifact. No reversible defects. ID/ID cardiolite stress test Impression: 1. Myocardial perfusion imaging study shows likely normal myocardial perfusion. No clear evidence of any ischemia or infarction. 2. Gated LVEF is 37% during stress and 39% during rest. 3. Transient ischemic dilatation not present. EKG component of the test reported separately.
--- NOTE | 2021-12-10 09:02 | CA_ITS ---
Acquisition Time: 2021-12-10 09:12:29 Total Exercise Time: 00:02:00 Test Indications: Abnormal ECG LBBB Medications: FUROSEMIDE FLONASE NAPROXEN SERTRALINE Protocol: LEXISCAN Max HR: 105 BPM 71% of Pred: 147 BPM Max BP: 124/064 mmHG Max Work Load: 1.0 METS Pharmacological stress test with Leixscan injection, while sitting, without anginal symptoms, with isolated PVC, with normotensive response to injection, with nondiagnostic EKG for ischemia. In recovery he reported feeling lightheaded, which was treated with Aminophylline 75mg IVP to reverse Lexican with resolution of symptom. Nuclear images pending. Test reviewed with Dr Bauer. Referred By: Kwame Patricio Overread By: KEVIN JOHNSTON
== END ==
LOC: HO.CARD 09:00
PROVIDERS: Visit Provider Internal Medicine
DX: I44.7 Left bundle-branch block, unspecified (principal)
CPT/HCPCS: 78452; 93017; A9500; J0280; J2785

== ENCOUNTER → 2022-01-06 13:35 | Outpatient (BNVA) | payer MEDICARE, SELFPAY | PROVIDERS: PCP Internal Medicine; Referring Provider Internal Medicine; Visit Provider Internal Medicine | DX: I42.8 Other cardiomyopathies (principal); I44.7 Left bundle-branch block, unspecified | CPT/HCPCS: 99212 ==

== ENCOUNTER 2022-03-05 08:02 | Outpatient (REF) | payer MEDICARE, SELFPAY ==
[2022-03-05 11:02] LABS: MANUAL DIFF FLAG NO
[2022-03-05 11:11] LABS: Basophils Percent Auto 0.4 % (0-2); Eosinophils Absolute Auto 0.1 X10*3/uL (0.0-0.4); Eosinophils Percent Auto 1.7 % (0-4); Hematocrit 45.3 % (42.0-52.0); Hemoglobin 15.2 g/dl (14.0-18.0); Imm Gran Abs Auto 0.01 X10*3/uL (0.00-0.03); Imm Gran Pct Auto 0.2 % (0.0-0.4); Lymphocytes Absolute Auto 1.4 X10*3/uL (1.2-4.9); Lymphocytes Percent Auto 29.9 % (20-40); Mean Corpuscular HGB Conc 33.6 g/dl (31.0-36.0); Mean Corpuscular Hemoglobin 30.8 pg (27.0-33.0); Mean Corpuscular Volume 91.7 fL (80.0-98.0); Mean Platelet Volume 9.9 fL (9.4-12.4); Monocytes Absolute Auto 0.5 X10*3/uL (0.1-1.2); Monocytes Percent Auto 9.6 % (2-11); Neutrophils Absolute Auto 2.8 x10*3/uL (2.0-8.3); Neutrophils Percent Auto 58.2 % (45-73); Platelet Count 185 X10*3/uL (160-400); Red Blood Count 4.94 X10*6/uL (4.60-5.80); Red Cell Distribution Width 12.9 % (11.0-16.0); White Blood Count 4.8 X10*3/uL (4.8-10.8)
[2022-03-05 11:19] LABS: Appearance Urine Clear; Color Urine Yellow; Glucose Urine UA Negative (Negative); Leukocyte Esterase Urine Negative (Negative); Nitrite Urine Negative (Negative); PH 6.5 (5.0-9.0); Urine Blood Negative (Negative); Urine Ketones Negative (Negative); Urine Protein Negative (Neg-Trace)
[2022-03-05 11:24] LABS: Bacteria Urine None Seen (None Seen); Hyaline Casts Urine 0-2 /LPF (0-2); RBC Urine 0-2 /HPF (0-2); Squamous Epithelial Cell Urine 0-2 /HPF (0-2); WBC Urine 0-5 /HPF (0-5)
[2022-03-05 11:49] LABS: B Type Natriuretic Peptide 37 pg/mL (<100)
[2022-03-05 11:52] LABS: Thyroid Stimulating Hormone 3.47 uIU/mL (0.32-4.0)
[2022-03-05 11:55] LABS: Anion Gap 14 (12-20); Blood Urea Nitrogen 15 mg/dL (9-16); Carbon Dioxide 27 mmol/L (22-29); Chloride 106 mmol/L (96-108); Estimated Glomerular Filt Rate > 60; Glucose Random 98 mg/dL (60-115); Potassium 4.7 mmol/L (3.3-5.1); Sodium 142 mmol/L (135-145)
[2022-03-05 11:58] LABS: Alanine Aminotransferase 26 U/L (0-40); Albumin Level 4.2 g/dL (3.5-5.0); Alkaline Phosphatase 82 U/L (39-117); Anion Gap 14 (12-20); Aspartate Amino Transferase 25 U/L (5-37); Bilirubin Total 0.7 mg/dL (0.0-1.0); Blood Urea Nitrogen 15 mg/dL (9-16); Calcium 9.3 mg/dL (8.4-10.2); Carbon Dioxide 27 mmol/L (22-29); Chloride 106 mmol/L (96-108); Cholesterol 214 mg/dL; Estimated Glomerular Filt Rate > 60; Glucose Fasting 98 mg/dL (60-99); HDL Cholesterol 47 mg/dL; LDL Cholesterol Calculated 148 mg/dl; Potassium 4.5 mmol/L (3.3-5.1); Sodium 142 mmol/L (135-145); Total Protein 6.7 g/dL (6.5-8.0); Triglycerides 99 mg/dL
[2022-03-05 12:52] LABS: PSA,Total (Free>4and<10) 2.29 ng/mL (0.00-4.00)
== END 2022-03-05 08:03 | disposition home or self-care (01) ==
LOC: HO.HMGCLDS 08:02
PROVIDERS: Absent Provider Urology; PCP Internal Medicine; Referring Provider Internal Medicine; Visit Provider Internal Medicine
DX: I44.7 Left bundle-branch block, unspecified (principal); N40.1 Benign prostatic hyperplasia with lower urinary tract symptoms; R94.30 Abnormal result of cardiovascular function study, unspecified; I42.8 Other cardiomyopathies; Z12.5 Encounter for screening for malignant neoplasm of prostate
CPT/HCPCS: 36415; 80048; 80053; 80061; 81001; 83880; 84153; 84443; 85025

== ENCOUNTER → 2022-03-11 12:43 | Outpatient (BNVA) | payer MEDICARE, SELFPAY | PROVIDERS: PCP Internal Medicine; Visit Provider Urology | DX: R97.20 Elevated prostate specific antigen [PSA] (principal); N40.0 Benign prostatic hyperplasia without lower urinary tract symptoms | CPT/HCPCS: Q3014 ==

== ENCOUNTER → 2022-04-15 13:33 | Outpatient (BNVA) | payer MEDICARE, SELFPAY | PROVIDERS: PCP Internal Medicine; Referring Provider Internal Medicine; Visit Provider Internal Medicine | DX: I44.7 Left bundle-branch block, unspecified (principal); I42.8 Other cardiomyopathies; Z79.899 Other long term (current) drug therapy | CPT/HCPCS: 99212 ==

== ENCOUNTER → 2022-08-04 09:48 | Outpatient (REF) | payer MEDICARE, SELFPAY ==
--- NOTE | 2022-08-04 10:16 | CA_ITS ---
Transthoracic Echocardiogram Patient (Last, First, Middle): Raúl Thurman C Gender: Male Date of : 1950 Age: 72 Procedure Date: 08/04/2022 Procedure Type: Transthoracic Echocardiogram Location: OP Height: 185.42 cm Weight: 81.65 kg BSA: 2.06 m2 Heart Rate: bpm BP: 124 / 80 mmHg Casting Machine Set Up Operator: LOU Referring MD: Kwame Patricio MD Symptoms: I42.8 - Other cardiomyopathies Study Quality: Adequate with contrast Conclusions: - 1. Moderate LV systolic dysfunction with mild LVH with LVEF of 35-40%, measured at 35.3% by Owen's formula with impaired relaxation filling pattern 2. Normal cardiac valvular Dopplers 3. Mildly dilated ascending aorta at 3.9 cm 4. No gross pericardial effusion Findings Procedure Information Contrast agent, definity, is being given per protocol without apparent complications. Left Ventricle Normal left ventricular cavity size. There is mildly increased left ventricular wall thickness. The left ventricular systolic function is moderately decreased. The visually estimated ejection fraction is between 35 40%. Spectral Doppler is indicative of an impaired relaxation filling pattern. E/E prime ratio is between 8 and 15 consistent with indeterminate filling pressures. There is moderate septal asymmetric hypertrophy. Right Ventricle Normal right ventricular cavity size and systolic function. Atria The left atrium is likely dilated. There is no evidence of interatrial shunt. The right atrium is normal in size. Aortic Valve The aortic valve structure and function is likely normal. There is no aortic valve stenosis. There is no aortic valve regurgitation. Mitral Valve Normal mitral valve structure and function. There is trace mitral valve regurgitation. There is no mitral valve stenosis. Pulmonic Valve The pulmonic valve was not well visualized. Tricuspid Valve Likely normal tricuspid valve structure and function. Tricuspid regurgitation envelope is inadequate for calculation of right ventricular systolic pressure. Normal right atrial pressure. Great Vessels The pulmonary artery was not well visualized. There is mild dilatation of the ascending aorta. Venous The inferior vena cava is normal in size and collapses greater than 50% with inspiration. Pericardium/Pleural There is no evidence of pericardial effusion. Prior Study Comparison Changes noted compared to prior study dated: 11/28/2021. ascending aorta is at 3.9 cm Measurements 2D Linear Measurements IVSd: 1.60 0.6-0.9/0.6-1.0 cm LVIDd: 4.14 3.9-5.3/4.2-5.9 cm LVIDd Index: 2.01 2.4-3.2/2.2-3.1 cm/m2 LVIDs: 3.45 2.0-3.6 cm LVPWd: 1.25 0.7-1.1 cm LA Diam: 3.60 2.7-3.8/3.0-4.0 cm LAIDs Index: 1.75 1.5-2.3 cm/m2 LV Mass: 281.40 67-162/88-224 g LV Mass Index: 136.60 43-95/49-115 g/m2 LVOT Diam: 2.20 3.0+(-)1.3 cm 2D Systolic Function EF 4C: 26.30 >55% EF 2C: 47.00 >55% EF BiP: 35.30 >55% Mitral Valve MV Pk E: 0.48 MV PK A: 0.85 MV Decel Time: 246.00 E/A: 0.60 E'Lateral: 6.31 E'Medial: 4.35 E/E' Med: 10.90 E/E' Lat: 7.50 PHT: 72.00 MVA PHT: 3.06 Decel [place]: 1.93 Aortic Valve AoV Pk Gerson: 1.20 AoV Mn Gerson: 0.94 AoV VTI: 0.24 AoV Pk Grad: 6.00 Aov Mn Grad: 4.00 CHARLETTE Cont.VTI: 2.74 LVOT LVOT Pk Gerson: 0.97 LVOT Mn Gerson: 0.66 LVOT VTI: 0.17 LVOT Pk Grad: 4.00 LVOT Mn Grad: 2.00 LVOT Diam: 2.20 LVOT Area: 3.80 Diastolic Function MV Pk E: 0.48 MV Pk A: 0.85 E/A: 0.60 E'Medial: 4.35 E/E' Med: 10.90 E' Laterial: 6.31 E/E' Lat: 7.50 Right Ventricle TAPSE (mm): 18.20 TVS' Gerson: 10.90 Tricuspid Valve RA Press: 3.00 Great Vessels Aorta Sinus of Valsalva: 3.41 2.0-3.5 cm Ao Asc: 3.90 2.1-3.4 cm Updated in Other Vendor System with Status of Final Yfn Peres MD electronically signed on 08/04/2022 12:38:19 PM with status of Final
== END ==
LOC: HO.CARD 09:48
PROVIDERS: PCP Internal Medicine; Visit Provider Internal Medicine
DX: I42.8 Other cardiomyopathies (principal)
CPT/HCPCS: 93306; Q9957

== ENCOUNTER → 2022-08-19 13:39 | Outpatient (BNVA) | payer MEDICARE, SELFPAY | PROVIDERS: PCP Internal Medicine; Referring Provider Internal Medicine; Visit Provider Internal Medicine | DX: I44.7 Left bundle-branch block, unspecified (principal); I42.8 Other cardiomyopathies; N40.0 Benign prostatic hyperplasia without lower urinary tract symptoms | CPT/HCPCS: 93005; 99212 ==

== ENCOUNTER 2022-08-28 10:35 | Outpatient (REF) | payer MEDICARE, SELFPAY ==
[2022-08-28 14:15] LABS: Anion Gap 12 (12-20); Blood Urea Nitrogen 19 mg/dL (9-16); Calcium 8.9 mg/dL (8.4-10.2); Carbon Dioxide 24 mmol/L (22-29); Chloride 109 mmol/L (96-108); Estimated Glomerular Filt Rate > 60; Glucose Random 103 mg/dL (60-115); Potassium 4.7 mmol/L (3.3-5.1); Sodium 140 mmol/L (135-145)
[2022-08-28 14:33] LABS: Prostate Specific Antigen 1.82 ng/mL (<0.05-4.0)
== END 2022-08-28 10:36 | disposition home or self-care (01) ==
LOC: HO.HMGCLDS 10:35
PROVIDERS: Absent Provider Urology; PCP Internal Medicine; Visit Provider Internal Medicine
DX: R97.20 Elevated prostate specific antigen [PSA] (principal); I42.8 Other cardiomyopathies; Z12.5 Encounter for screening for malignant neoplasm of prostate
CPT/HCPCS: 36415; 80048; 84153

== ENCOUNTER → 2022-09-30 10:36 | Outpatient (BNVA) | payer MEDICARE, SELFPAY | PROVIDERS: PCP Internal Medicine; Visit Provider Urology | DX: N40.0 Benign prostatic hyperplasia without lower urinary tract symptoms (principal); N32.81 Overactive bladder | CPT/HCPCS: Q3014 ==

== ENCOUNTER → 2022-12-05 11:33 | Outpatient (BNVA) | payer MEDICARE, SELFPAY | PROVIDERS: PCP Internal Medicine; Visit Provider Urology ==

== ENCOUNTER 2023-02-09 13:47 | Outpatient (AMB) | payer MEDICARE, SELFPAY ==
--- NOTE | 2023-02-09 13:53 | MHC.OFFVIS ---
Intake Vital Signs 02/09/23 13:54 Height 6 ft Weight 183 lb 6.793 oz BMI 24.9 BP 94/62 Blood Pressure Location Lt brachial Position Sitting Pulse 94 Intake Visit Reasons: 6 month follow up after echo Intake Note: 6 month follow up Touch Up Painter Hand Required: No Accompanied by: Self / Same As Patient Allergies Sulfa (Sulfonamide Antibiotics) Allergy (Unknown, Verified 02/09/23 13:55) hives sulfamethoxazole [From Bactrim] Allergy (Unknown, Verified 02/09/23 13:55) HIVES trimethoprim [From Bactrim] Allergy (Unknown, Verified 02/09/23 13:55) HIVES Medication List - Last Reconciled 02/09/23 by Kwame Patricio MD finasteride 5 mg PO DAILY fluticasone propionate 50 mcg/actuation 1 spray intranasal DAILY metoprolol succinate ER (Toprol XL) 25 mg PO DAILY offwzzoyfnvp-llswvevk-haahql 1 tab PO DAILY sacubitril-valsartan 24-26 mg (Entresto) 1 tab PO BID 90 days sertraline 100 mg PO DAILY tadalafil 5 mg PO DAILY 90 days HPI HPI Comments History of Present Illness Details Raúl returns for follow-up. To recall, he came for hernia surgery noted to have left bundle-branch block pattern on the EKG. The surgery itself seems to have been unremarkable. Subsequently, cardiac workup shows cardiomyopathy. Patient himself has absolutely no cardiac symptoms. Unlimited physical activity. He states that he can do almost anything he wants and gets no symptoms like shortness of breath. Only concern is that whenever he takes the metoprolol he feels very tired and sometimes even dizzy. Today's blood pressure is on the lower side. Not clear if that is the reason. [facility] Medical History Arthritis BPH (benign prostatic hyperplasia) Depression Surgical History Hx of sinus surgery History of tonsillectomy History of prostate biopsy History of left inguinal hernia repair History of carpal tunnel release History of colonoscopy Family History Father No problems noted. Mother No problems noted. Social History Are you a primary memory care director to a significant other at home: No Do you presently have visiting nurse or other home services: No Alcohol intake: never Patient Tobacco Use Status: Never used Tobacco Review of Systems Const Denies weakness ENT Denies dizziness Card Denies chest pain, Denies chest pain with activity, Denies syncope, Denies rapid heart rate, Denies pedal edema, Denies edema, Denies leg edema, Denies lightheadedness, Denies palpitations, Denies dyspnea, Denies dyspnea on exertion and Denies orthopnea Resp Denies cough, Denies dyspnea and Denies dyspnea on exertion GI Denies hematochezia and Denies change in stool character Musc Denies abnormal gait, Denies muscle cramps, Denies muscle weakness, Denies numbness, Denies radiating pain into limb and Denies tingling Neuro Denies abnormal gait, Denies dizziness, Denies syncope, Denies numbness, Denies tingling and Denies weakness Endo Denies palpitations Physical Exam Vital Signs: Last Vital Signs Pulse 94 02/09/23 13:54 BP 94/62 02/09/23 13:54 BMI result Body Mass Index 24.9 Const General: comfortable and no acute distress Orientation/consciousness: patient oriented x3 HEENT Other: Unremarkable Head: Yes normal to inspection Neck Neck: Yes normal visual inspection Chest Chest palpation & inspection: normal inspection of the chest Resp Auscultation: clear to auscultation bilaterally Cardio Palpation: normal PMI Heart sounds: S1 normal heart sound present, S2 normal heart sound present, no gallops, no murmurs and no rubs GI Palpation (GI): Soft to palpation Back/Spine/Pelvis Other: unremarkable Skin General skin exam: no rashes or lesions noted Neuro General: patient oriented x3 Extrem General: Yes normal to inspection Psych Mental Status: mental status grossly normal Assessment & Plan Assessment & Plan (1) LBBB (left bundle branch block): Code(s): I44.7 - Left bundle-branch block, unspecified (2) NICM (nonischemic cardiomyopathy): Code(s): I42.8 - Other cardiomyopathies Plan In the most recent echocardiogram, LVEF 35-40%. It was 35% by biplane method. In the echo prior to this, LVEF was 36%. Hence overall unchanged. Myocardial perfusion imaging study shows likely normal perfusion. Gated LVEF is similar, 37% during stress and 39% during rest. Cardiac BNP 37. Overall, suspected nonischemic cardiomyopathy related to left bundle-branch block of unknown chronicity. Clinically, absolutely no symptoms with unlimited exercise tolerance. Due to complaints of feeling tired, dizzy and low blood pressure on Toprol XL, may stop that. Continue Entresto only. No need for diuretics. Will follow-up in 6 months. Medications: Changed From finasteride 5 mg PO DAILY 90 days 90 tabs 1RF N13.8 - Other obstructive and reflux uropathy, N40.0 - Benign prostatic hyperplasia without lower urinary tract symptoms, N40.1 - Benign prostatic hyperplasia with lower urinary tract symptoms, R33.9 - Retention of urine, unspecified To finasteride 5 mg PO DAILY N13.8 - Other obstructive and reflux uropathy, N40.0 - Benign prostatic hyperplasia without lower urinary tract symptoms, N40.1 - Benign prostatic hyperplasia with lower urinary tract symptoms, R33.9 - Retention of urine, unspecified Discontinued metoprolol succinate ER (Toprol XL) Discontinued Reason: Doctor's Order 25 mg PO DAILY 90 tabs 3RF Coding Level of Care Code Est Pt Level 4 (47835) Diagnoses LBBB (left bundle branch block) I44.7 NICM (nonischemic cardiomyopathy) I42.8
[2023-02-09 13:54] VITALS: BP 94/62; PULSE 94; BMI 24.9
== END 2023-02-09 14:09 | disposition home or self-care (01) ==
PROVIDERS: Visit Provider Internal Medicine
DX: I44.7 Left bundle-branch block, unspecified (principal); I42.8 Other cardiomyopathies
CPT/HCPCS: 99214

== ENCOUNTER → 2023-02-09 13:47 | Outpatient (BNVA) | payer MEDICARE, SELFPAY | PROVIDERS: Visit Provider Internal Medicine | DX: I44.7 Left bundle-branch block, unspecified (principal); I42.8 Other cardiomyopathies | CPT/HCPCS: 99212 ==

== ENCOUNTER 2023-08-07 08:15 | Outpatient (REF) | payer MEDICARE, SELFPAY ==
[2023-08-07 10:19] LABS: MANUAL DIFF FLAG NO
[2023-08-07 10:34] LABS: Basophils Percent Auto 0.7 % (0-2); Eosinophils Absolute Auto 0.1 X10*3/uL (0.0-0.4); Eosinophils Percent Auto 1.4 % (0-4); Hematocrit 42.6 % (42.0-52.0); Hemoglobin 14.3 g/dl (14.0-18.0); Imm Gran Abs Auto 0.02 X10*3/uL (0.00-0.03); Imm Gran Pct Auto 0.5 % (0.0-0.4); Lymphocytes Absolute Auto 1.3 X10*3/uL (1.2-4.9); Lymphocytes Percent Auto 29.1 % (20-40); Mean Corpuscular HGB Conc 33.6 g/dl (31.0-36.0); Mean Corpuscular Hemoglobin 31.2 pg (27.0-33.0); Mean Platelet Volume 10.2 fL (9.4-12.4); Monocytes Absolute Auto 0.5 X10*3/uL (0.1-1.2); Monocytes Percent Auto 10.8 % (2-11); Neutrophils Absolute Auto 2.6 x10*3/uL (2.0-8.3); Neutrophils Percent Auto 57.5 % (45-73); Platelet Count 155 X10*3/uL (160-400); Red Blood Count 4.58 X10*6/uL (4.60-5.80); Red Cell Distribution Width 13.3 % (11.0-16.0); White Blood Count 4.4 X10*3/uL (4.8-10.8)
[2023-08-07 11:00] LABS: Alanine Aminotransferase 13 U/L (0-40); Albumin Level 4.1 g/dL (3.5-5.0); Alkaline Phosphatase 71 U/L (39-117); Anion Gap 11 (12-20); Aspartate Amino Transferase 17 U/L (5-37); Bilirubin Total 0.8 mg/dL (0.0-1.0); Blood Urea Nitrogen 20 mg/dL (9-16); Calcium 9.1 mg/dL (8.4-10.2); Carbon Dioxide 25 mmol/L (22-29); Chloride 107 mmol/L (96-108); Cholesterol 174 mg/dL (<200); Estimated Glomerular Filt Rate > 60; Glucose Fasting 93 mg/dL (60-99); HDL Cholesterol 51 mg/dL (>40); LDL Cholesterol Calculated 114 mg/dL (<100); Potassium 4.4 mmol/L (3.3-5.1); Sodium 139 mmol/L (135-145); Total Protein 6.8 g/dL (6.5-8.0); Triglycerides 45 mg/dL (<150)
== END 2023-08-07 08:16 | disposition home or self-care (01) ==
LOC: HO.HMGCLDS 08:15
PROVIDERS: PCP Internal Medicine; Visit Provider Internal Medicine
DX: Z13.6 Encounter for screening for cardiovascular disorders (principal); R94.30 Abnormal result of cardiovascular function study, unspecified; N40.1 Benign prostatic hyperplasia with lower urinary tract symptoms; F32.9 Major depressive disorder, single episode, unspecified; R09.81 Nasal congestion
CPT/HCPCS: 36415; 80053; 80061; 84443; 85025

== ENCOUNTER 2023-08-11 13:18 | Outpatient (AMB) | payer MEDICARE, SELFPAY ==
[2023-08-11 13:20] VITALS: BP 120/70; PULSE 77; BMI 24.4
--- NOTE | 2023-08-11 13:20 | A.OFFVIS_ITS ---
Vital Signs 08/11/23 13:20 Height 6 ft Weight 179 lb 14.355 oz BMI 24.4 BP 120/70 Blood Pressure Location Lt brachial Position Sitting Pulse 77 Intake Visit Reasons: 6 mth f/up Supervising Nurse Required: No Accompanied by: Self / Same As Patient Allergies Sulfa (Sulfonamide Antibiotics) Allergy (Unknown, Verified 02/09/23 13:55) hives sulfamethoxazole [From Bactrim] Allergy (Unknown, Verified 02/09/23 13:55) HIVES trimethoprim [From Bactrim] Allergy (Unknown, Verified 02/09/23 13:55) HIVES Medication List - Last Reconciled 08/11/23 by Kwame Patricio MD finasteride 5 mg PO DAILY fluticasone propionate 50 mcg/actuation 1 spray intranasal DAILY sacubitril-valsartan 24-26 mg (Entresto) 1 tab PO BID sertraline 100 mg PO DAILY tadalafil 5 mg PO DAILY 90 days HPI Comments Details: Raúl returns for follow-up. To recall, he originally came for hernia surgery noted to have left bundle- branch block pattern on the EKG. The surgery itself seems to have been unremarkable. Subsequently, cardiac workup shows cardiomyopathy. In the past, he denied any symptoms but today he states that he describes sensation of 'truck parked on his chest' every so often. This can happen any time. Sometimes at rest sometimes when he is doing activities like vacuuming. In fact, he states he is that has been going on for a while but he just forgot to mention that in prior visits. Along with that, he also feels short of breath and he gets scared that he is getting a 'heart attack'. After a while, that resolved completely back to normal. [facility] Medical History Arthritis Depression BPH (benign prostatic hyperplasia) Surgical History Hx of sinus surgery History of tonsillectomy History of prostate biopsy History of left inguinal hernia repair History of carpal tunnel release History of colonoscopy Family History Father No problems noted. Mother No problems noted. Social History Are you a primary career services manager to a significant other at home: No Do you presently have visiting nurse or other home services: No Alcohol intake: never Patient Tobacco Use Status: Never used Tobacco Review of Systems Const Denies chills, Denies fatigue, Denies fever(s), Denies frequent falls, Denies weakness, Denies weight gain and Denies weight loss ENT Denies dizziness Card Denies chest pain, Denies leg edema, Denies lightheadedness, Denies palpitations, Denies dyspnea and Denies dyspnea on exertion Resp Denies cough, Denies dyspnea and Denies dyspnea on exertion GI Denies hematochezia Musc Denies abnormal gait, Denies muscle weakness, Denies numbness, Denies radiating pain into limb and Denies tingling Neuro Denies abnormal gait, Denies dizziness, Denies frequent falls, Denies numbness, Denies tingling and Denies weakness Endo Denies fatigue and Denies palpitations Physical Exam Vital Signs: Last Vital Signs Pulse 77 08/11/23 13:20 BP 120/70 08/11/23 13:20 BMI result Body Mass Index 24.4 Const General: comfortable and no acute distress Orientation/consciousness: patient oriented x3 HEENT Other: Unremarkable Head: Yes normal to inspection Neck Neck: Yes normal visual inspection Chest Chest palpation & inspection: normal inspection of the chest Resp Auscultation: clear to auscultation bilaterally Cardio Palpation: normal PMI Heart sounds: S1 normal heart sound present, S2 normal heart sound present, no gallops, no murmurs and no rubs GI Palpation (GI): Soft to palpation Back/Spine/Pelvis Other: unremarkable Skin General skin exam: no rashes or lesions noted Neuro General: patient oriented x3 Extrem General: Yes normal to inspection Psych Mental Status: mental status grossly normal Office Procedures EKG Details: EKG with sinus rhythm at 77/Min; left bundle-branch block pattern 35910-[id number], Complete Assessment & Plan Assessment & Plan (1) LBBB (left bundle branch block): Code(s): I44.7 - Left bundle-branch block, unspecified Category: Medical (2) NICM (nonischemic cardiomyopathy): Code(s): I42.8 - Other cardiomyopathies Category: Medical (3) Precordial chest pain: Code(s): R07.2 - Precordial pain Category: Medical Plan In the last echocardiogram, LVEF 35-40%. It was 35% by biplane method. Similar to the previous echo. In the past, myocardial perfusion imaging study did not show any clear ischemic findings. It was thought that cardiomyopathy could be related to left bundle-branch block. With regard to his current complaints of chest pain/heaviness with vacuuming extra, etiology is not clear. Discussed about a diagnostic catheterization for further workup and he agrees. We will schedule the same. We will also repeat his echocardiogram for any worsening cardiomyopathy. For medications, he is only on Entresto. His blood pressure runs low and hence likely will not be able tolerate other medications. Also do not think he is in heart failure either. His cardiac BNP was well within normal limits in the past. Follow-up after the above. Orders: Orders Cardiac Cath LT Diagnostic Today I25.10 - Atherosclerotic heart disease of [place] coronary artery without angina pectoris, I42.8 - Other cardiomyopathies Complete Blood Count no Diff Today I42.8 - Other cardiomyopathies Basic Metabolic Panel Today I42.8 - Other cardiomyopathies Prothrombin Time INR Today I42.8 - Other cardiomyopathies Coding Level of Care Code Est Pt Level 4 (67672) Diagnoses LBBB (left bundle branch block) I44.7 NICM (nonischemic cardiomyopathy) I42.8 Precordial chest pain R07.2 CPT Codes EKG - CPT: 33948-[id number], Complete ([id number])
== END 2023-08-11 14:07 | disposition home or self-care (01) ==
PROVIDERS: PCP Internal Medicine; Visit Provider Internal Medicine
DX: I44.7 Left bundle-branch block, unspecified (principal); I42.8 Other cardiomyopathies; R07.2 Precordial pain
CPT/HCPCS: 93010; 99214

== ENCOUNTER → 2023-08-11 13:18 | Outpatient (BNVA) | payer MEDICARE, SELFPAY | PROVIDERS: PCP Internal Medicine; Visit Provider Internal Medicine | DX: I44.7 Left bundle-branch block, unspecified (principal); I42.8 Other cardiomyopathies; R07.2 Precordial pain | CPT/HCPCS: 93005; 99212 ==

== ENCOUNTER 2023-08-12 10:24 | Outpatient (AMB) | payer MEDICARE, SELFPAY ==
--- NOTE | 2023-08-12 10:31 | A.OFFVIS_ITS ---
Intake Visit Reasons: 6M PVR/Med Review(Tadalafil) Intake Note: Patient is Present for PVR Urology Med: Finasteride (Patient states that he is not taking Tadalafil only Finasteride) Antibiotic Allergy:Sulfa, Trimethroprim Blood Thinner: None Todays PVR: 10 Allergies Sulfa (Sulfonamide Antibiotics) Allergy (Unknown, Verified 08/12/23 10:35) hives sulfamethoxazole [From Bactrim] Allergy (Unknown, Verified 08/12/23 10:35) HIVES trimethoprim [From Bactrim] Allergy (Unknown, Verified 08/12/23 10:35) HIVES HPI Comments Details: Raúl is a pleasant male. He is a patient Dr. Wang. He is seen for the following urologic conditions - elevated PSA - lower urinary tract symptoms Six-month follow-up Current therapy finasteride PVR 0 cc PSA last year Primary complaint is 1 of nocturia times 2-3 Feels he has adequate stream with effective emptying Thinks he is primarily waking to void rather than voiding when awake Did nothing medication helped Currently remains off medications Lower urinary tract symptoms Better stream, emptying bladder Prior medications - tamsulosin and finasteride Nocturia x2-3 Current symptoms - improved stream Elevated PSA 02/24 5.6, 02/25 2.2, 08/26 1.8 Prior prostate biopsy a number of years ago [facility] Medical History Arthritis Depression BPH (benign prostatic hyperplasia) Surgical History Hx of sinus surgery History of tonsillectomy History of prostate biopsy History of left inguinal hernia repair History of carpal tunnel release History of colonoscopy Family History Father No problems noted. Mother No problems noted. Social History Are you a primary regular senior care provider to a significant other at home: No Do you presently have visiting nurse or other home services: No Alcohol intake: never Patient Tobacco Use Status: Never used Tobacco Review of Systems Const Denies chills and Denies fever(s) Card Reports no additional complaints and Denies syncope Resp Denies cough GI Denies abdominal pain and Denies heartburn Reports as per HPI and Denies change in libido Neuro Denies syncope Psych Denies change in libido Endo Denies change in libido Physical Exam Const General: cooperative, healthy appearing, comfortable and no acute distress Orientation/consciousness: patient oriented x3 HEENT Face and sinus: Yes normal facial exam Mouth: moist mucous membranes Neck Neck: Yes normal visual inspection, Yes full ROM and Yes trachea midline Chest Chest palpation & inspection: normal inspection of the chest Resp Effort & Inspection: normal respiratory effort, able to speak in complete sentences and no respiratory distress GI Inspection: Yes normal to inspection Back/Spine/Pelvis Cervical Spine: normal cervical lordosis Thoracic/Lumbar Spine: thoracic and lumbar spine normal to inspection Skin General skin exam: no rashes or lesions noted Neuro General: patient oriented x3, gait normal, tone normal and moves all extremities Extrem General: Yes normal to inspection and Yes capillary refill normal Office Procedures Post Void Residual Post Residual Void Post Void Residual (PVR): 10 [id number] Void Residual by ultrasound Assessment & Plan Assessment & Plan (1) Detrusor instability of bladder: Code(s): N32.81 - Overactive bladder Category: Medical Plan Twelve month follow-up Orders: Orders AMB Post Void Residual by ultrasound 08/12/23 N40.0 - Benign prostatic hyperpla juan pablo without lower urinary tract symptoms Prostate Specific Antigen 364 Days R97.20 - Elevated prostate specific antigen [PSA] Patient Instructions: Imaging studies, laboratory and physical exam results were discussed and reviewed in detail. No major barriers to patient understanding were identified. An opportunity to ask questions regarding the treatment plan was provided. All questions were answered. The patient expressed understanding and agreement with the above treatment plan. The patient is aware they should contact our office by phone for worsening of their current condition or the appearance of new urologic symptoms. Compliance is encouraged with any medications and followup testing that is ordered. It is a privilege to participate in the urologic care of your patient. If you have any questions or concerns regarding treatment for the above conditions, or other urologic issues, please do not hesitate to contact me. The office telephone contact is [phone]. This note is constructed using voice recognition software. While every effort has been made to ensure accuracy nursing informatics analyst errors may have been included. Yours sincerely, Dr Usman Atkins MD, [facility] - Urology Providers of Expert, Compassionate Care for the Genitourinary System Coding Level of Care Code Est Pt Level 4 (38791) Diagnoses Detrusor instability of bladder N32.81 CPT Codes Post Residual Void - PVR CPT Code: 32742-Vdsd Void Residual by ultrasound ([id number])
== END 2023-08-12 10:58 | disposition home or self-care (01) ==
PROVIDERS: PCP Internal Medicine; Visit Provider Urology
DX: N32.81 Overactive bladder (principal)
CPT/HCPCS: 99213

== ENCOUNTER → 2023-08-12 10:24 | Outpatient (BNVA) | payer MEDICARE, SELFPAY | PROVIDERS: PCP Internal Medicine; Visit Provider Urology | DX: N32.81 Overactive bladder (principal) | CPT/HCPCS: 51798; 99212 ==

== ENCOUNTER 2023-08-20 11:19 | Outpatient (REF) | payer MEDICARE, SELFPAY ==
[2023-08-20 13:13] LABS: Prothrombin Time 11.8 SEC (11.1-13.3)
== END 2023-08-20 11:20 | disposition home or self-care (01) ==
LOC: HO.HMGCLDS 11:19
PROVIDERS: PCP Internal Medicine; Visit Provider Internal Medicine
DX: I42.8 Other cardiomyopathies (principal)
CPT/HCPCS: 36415; 85610

== ENCOUNTER → 2023-09-01 23:59 | Outpatient (BNV) | payer MEDICARE, SELFPAY | PROVIDERS: PCP Internal Medicine; Visit Provider Internal Medicine Cardiovascular Disease | DX: I50.20 Unspecified systolic (congestive) heart failure (principal) | CPT/HCPCS: 93458; 99152 ==

== ENCOUNTER 2023-09-15 14:06 | Outpatient (AMB) | payer MEDICARE, SELFPAY ==
[2023-09-15 14:29] VITALS: BP 116/60; PULSE 76; BMI 24.2
--- NOTE | 2023-09-15 14:29 | MHC.OFFVIS ---
Vital Signs 09/15/23 14:29 Height 6 ft Weight 178 lb 9.191 oz BMI 24.2 BP 116/60 Blood Pressure Location Lt brachial Position Sitting Pulse 76 Pulse Source Pulse Oximeter Intake Visit Reasons: 2 wk s/p cath Allergies Sulfa (Sulfonamide Antibiotics) Allergy (Unknown, Verified 08/12/23 10:35) hives sulfamethoxazole [From Bactrim] Allergy (Unknown, Verified 08/12/23 10:35) HIVES trimethoprim [From Bactrim] Allergy (Unknown, Verified 08/12/23 10:35) HIVES HPI Comments Details: 73-year-old male presents today for a follow-up after cardiac catheretization. He reports the chest pains he gets have been on and off for many years and has not identified a trigger. He denies any shortness of breath, swelling. palpitations, or syncope. He has an echo on 09/28/2023. [facility] Medical History Arthritis Depression BPH (benign prostatic hyperplasia) Surgical History S/P cardiac catheterization Hx of sinus surgery History of tonsillectomy History of prostate biopsy History of left inguinal hernia repair History of carpal tunnel release History of colonoscopy Family History Father No problems noted. Mother No problems noted. Social History Are you a primary doggy daycare activities director to a significant other at home: No Do you presently have visiting nurse or other home services: No Alcohol intake: never Patient Tobacco Use Status: Never used Tobacco Review of Systems Const Denies weakness ENT Denies dizziness Card Denies chest pain, Denies chest pain with activity, Denies syncope, Denies rapid heart rate, Denies pedal edema, Denies edema, Denies leg edema, Denies lightheadedness, Denies palpitations, Denies dyspnea, Denies dyspnea on exertion and Denies orthopnea Resp Denies cough, Denies dyspnea and Denies dyspnea on exertion GI Denies hematochezia and Denies change in stool character Musc Denies abnormal gait, Denies muscle cramps, Denies muscle weakness, Denies numbness, Denies radiating pain into limb and Denies tingling Neuro Denies abnormal gait, Denies dizziness, Denies syncope, Denies numbness, Denies tingling and Denies weakness Endo Denies palpitations Physical Exam Vital Signs: Last Vital Signs Pulse 76 09/15/23 14:29 BP 116/60 09/15/23 14:29 BMI result Body Mass Index 24.2 Const General: healthy appearing and no acute distress Orientation/consciousness: patient oriented x3 HEENT Head: Yes normal to inspection Eyes General: appearance normal, both eyes and all related structures Neck Neck: Yes normal visual inspection Chest Chest palpation & inspection: normal inspection of the chest Resp Effort & Inspection: normal respiratory effort Auscultation: clear to auscultation bilaterally Cardio Jugular venous distension: no JVD Palpation: normal PMI Rate: regular rate Rhythm: regular rhythm Heart sounds: S1 normal heart sound present, S2 normal heart sound present, no click, no gallops, no murmurs and no rubs GI Inspection: Yes normal to inspection Palpation (GI): Soft to palpation Skin General skin exam: no rashes or lesions noted Neuro General: patient oriented x3 Extrem General: Yes normal to inspection Psych Appearance: grossly normal Assessment & Plan Assessment & Plan (1) S/P cardiac catheterization: Comment: 09/01/[address] Bauer Cardiac Arteries and Lesion Findings LMCA: Normal. LAD: Normal. LCx: Normal. RCA: Normal. Hemodynamic: Normal systemic pressures. Normal LVEDP. There is no gradient across aortic valve on pullback. Code(s): Z98.890 - Other specified postprocedural states Category: Medical (2) LBBB (left bundle branch block): Code(s): I44.7 - Left bundle-branch block, unspecified Category: Medical Plan Cardiac catheterizion shows normal coronary arteries. He is on Entresto 24-26mg BID only due to lower blood pressures. 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 Will refer to Dr. Shaikh. Coding Level of Care Code Est Pt Level 3 (93670) Diagnoses S/P cardiac catheterization Z98.890 LBBB (left bundle branch block) I44.7
== END 2023-09-15 14:49 | disposition home or self-care (01) ==
PROVIDERS: PCP Internal Medicine; Visit Provider Nurse Practitioner
DX: Z98.890 Other specified postprocedural states (principal); I44.7 Left bundle-branch block, unspecified
CPT/HCPCS: 99213

== ENCOUNTER → 2023-09-15 14:06 | Outpatient (BNVA) | payer MEDICARE, SELFPAY | PROVIDERS: PCP Internal Medicine; Visit Provider Nurse Practitioner | DX: I44.7 Left bundle-branch block, unspecified (principal); Z98.890 Other specified postprocedural states | CPT/HCPCS: 99212 ==

== ENCOUNTER → 2023-09-28 13:49 | Outpatient (REF) | payer MEDICARE, SELFPAY ==
--- NOTE | 2023-09-28 13:52 | CA_ITS ---
Transthoracic Echocardiogram Patient (Last, First, Middle): Raúl Thurman C Gender: Male Date of : 1950 Age: 73 Procedure Date: 09/28/2023 Procedure Type: Transthoracic Echocardiogram Location: OP Height: 185.42 cm Weight: 79.38 kg BSA: 2.03 m2 Heart Rate: bpm BP: 118 / 80 mmHg Admin Dir: Referring MD: Kwame Patricio MD Bung Dropper: Yfn Peres MD Symptoms: I42.8 - Other cardiomyopathies Study Quality: Adequate ECG Rhythm: Sinus Conclusions: - 1. Moderate to severe LV systolic dysfunction with LVEF of 30 35% with moderate LVH with impaired relaxation filling pattern 2. Normal cardiac valvular Dopplers 3. No gross pericardial effusion. Findings Left Ventricle Normal left ventricular cavity size. There is moderately increased left ventricular wall thickness. The left ventricular systolic function is moderate to severely decreased. The visually estimated ejection fraction is between 30-35%. Spectral Doppler is indicative of an impaired relaxation filling pattern. E/E prime ratio is between 8 and 15 consistent with indeterminate filling pressures. Right Ventricle Normal right ventricular cavity size and systolic function. Atria The left atrium is mildly dilated. 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 There is no evidence of interatrial shunt. The right atrium is normal in size. Aortic Valve Normal aortic valve structure and function. There is no aortic valve stenosis. There is no aortic valve regurgitation. Mitral Valve Normal mitral valve structure and function. There is trace mitral valve regurgitation. There is no mitral valve stenosis. Pulmonic Valve The pulmonic valve is likely normal. Tricuspid Valve Normal tricuspid valve structure. There is trace tricuspid valve regurgitation. The right ventricular systolic pressure is normal. The right ventricular systolic pressure is 18 mmHg. Normal right atrial pressure. There is no evidence of pulmonary hypertension. Great Vessels All visible segments of the aorta are normal in size. The pulmonary artery was not well visualized. Venous The inferior vena cava is normal in size and collapses greater than 50% with inspiration. Pericardium/Pleural There is no evidence of pericardial effusion. Prior Study Comparison Changes noted compared to prior study dated: 08/04/2022. LV systolic function with further reduced. Ascending aorta measured to 3.4 cm on this study could be technical Measurements 2D Linear Measurements IVSd: 1.41 0.6-0.9/0.6-1.0 cm LVIDd: 4.18 3.9-5.3/4.2-5.9 cm LVIDd Index: 2.06 2.4-3.2/2.2-3.1 cm/m2 LVIDs: 3.48 2.0-3.6 cm LVPWd: 1.36 0.7-1.1 cm Ao Root: 3.50 2.1-3.5 cm LA Diam: 3.90 2.7-3.8/3.0-4.0 cm LAIDs Index: 1.92 1.5-2.3 cm/m2 LV Mass: 273.17 67-162/88-224 g LV Mass Index: 134.57 43-95/49-115 g/m2 LVOT Diam: 2.60 3.0+(-)1.3 cm 2D Systolic Function EF 4C: 29.50 >55% EF 2C: 33.70 >55% EF BiP: 31.90 >55% Mitral Valve MV Pk E: 0.48 MV PK A: 0.89 MV Decel Time: 94.00 E/A: 0.50 E'Lateral: 5.33 E'Medial: 4.03 E/E' Med: 12.00 E/E' Lat: 9.10 PHT: 28.00 MVA PHT: 7.86 Decel Powell: 5.15 Aortic Valve AoV Pk Gerson: 1.16 AoV Mn Gerson: 0.80 AoV VTI: 0.25 AoV Pk Grad: 5.00 Aov Mn Grad: 3.00 CHARLETTE Cont.VTI: 3.58 LVOT LVOT Pk Gerson: 0.74 LVOT Mn Gerson: 0.53 LVOT VTI: 0.17 LVOT Pk Grad: 2.00 LVOT Mn Grad: 1.00 LVOT Diam: 2.60 LVOT Area: 5.31 Diastolic Function MV Pk E: 0.48 MV Pk A: 0.89 E/A: 0.50 E'Medial: 4.03 E/E' Med: 12.00 E' Laterial: 5.33 E/E' Lat: 9.10 Right Ventricle TAPSE (mm): 18.00 TVS' Gerson: 13.00 Tricuspid Valve TR Pk Gerson: 1.95 TR Pk Grad: 15.00 RA Press: 3.00 RVSP: 18.00 Great Vessels Aorta Ao Root-2D: 3.50 2.0-3.7 cm Ao Asc: 3.40 2.1-3.4 cm Pulmonary Valve PV Pk Gerson: 0.83 Peak PV Grad: 3.00 Updated in Other Vendor System with Status of Final Yfn Peres MD electronically signed on 09/28/2023 4:44:04 PM with status of Final
== END ==
LOC: HO.CARD 13:49
PROVIDERS: PCP Internal Medicine; Visit Provider Internal Medicine
DX: I42.8 Other cardiomyopathies (principal)
CPT/HCPCS: 93306

== ENCOUNTER → 2023-09-28 13:52 | Outpatient (BNV) | payer MEDICARE, SELFPAY | PROVIDERS: PCP Internal Medicine; Visit Provider Internal Medicine Cardiovascular Disease | DX: I51.89 Other ill-defined heart diseases (principal); I51.0 Cardiac septal defect, acquired | CPT/HCPCS: 93306 ==

== ENCOUNTER 2023-12-22 12:38 | Outpatient (AMB) | payer MEDICARE, SELFPAY ==
[2023-12-22 12:40] VITALS: BP 90/56; PULSE 56; BMI 24.5
--- NOTE | 2023-12-22 12:40 | MHC.OFFVIS ---
Vital Signs 12/22/23 12:40 Height 6 ft Weight 180 lb 12.465 oz BMI 24.5 BP 90/56 L Blood Pressure Location Lt brachial Position Sitting Pulse 56 Pulse Source Pulse Oximeter Intake Visit Reasons: 3 mth f/up Civil Engineering Professional Required: No Accompanied by: Self / Same As Patient Allergies Sulfa (Sulfonamide Antibiotics) Allergy (Unknown, Verified 08/12/23 10:35) hives sulfamethoxazole [From Bactrim] Allergy (Unknown, Verified 08/12/23 10:35) HIVES trimethoprim [From Bactrim] Allergy (Unknown, Verified 08/12/23 10:35) HIVES Medication List - Last Reconciled 12/22/23 by Kwame Patricio MD finasteride 5 mg PO DAILY 90 days fluticasone propionate 50 mcg/actuation 1 spray intranasal DAILY sacubitril-valsartan 24-26 mg (Entresto) 1 tab PO BID sertraline 100 mg PO DAILY tadalafil 5 mg PO DAILY 90 days HPI Comments Details: Raúl returns for follow-up. To recall, he originally came for hernia surgery noted to have left bundle-branch block pattern on the EKG. Subsequently, cardiac workup showed cardiomyopathy. During a prior visit, he was describing a sensation of ' truck parked on his chest'. He was also having some shortness of breath at times. This led to cardiac catheterization but normal coronary arteries. He still gets short of breath at different times but able to get along for the most part. [facility] Medical History Arthritis Depression BPH (benign prostatic hyperplasia) Surgical History S/P cardiac catheterization Hx of sinus surgery History of tonsillectomy History of prostate biopsy History of left inguinal hernia repair History of carpal tunnel release History of colonoscopy Family History Father No problems noted. Mother No problems noted. Social History Are you a primary care specialist to a significant other at home: No Do you presently have visiting nurse or other home services: No Alcohol intake: never Patient Tobacco Use Status: Never used Tobacco Review of Systems Const Denies chills, Denies fatigue, Denies fever(s), Denies weight gain and Denies weight loss ENT Denies dizziness Card Denies chest pain, Denies leg edema, Denies lightheadedness, Denies palpitations, Reports dyspnea, Denies dyspnea on exertion, Denies orthopnea and Denies other Resp Denies cough, Reports dyspnea and Denies dyspnea on exertion GI Denies hematochezia and Denies change in stool character Musc Denies abnormal gait, Denies muscle weakness, Denies numbness, Denies radiating pain into limb and Denies tingling Neuro Denies abnormal gait, Denies dizziness, Denies numbness and Denies tingling Endo Denies fatigue and Denies palpitations Physical Exam Vital Signs: Last Vital Signs Pulse 56 12/22/23 12:40 BP 90/56 L 12/22/23 12:40 BMI result Body Mass Index 24.5 Const General: comfortable and no acute distress Orientation/consciousness: patient oriented x3 HEENT Other: Unremarkable Head: Yes normal to inspection Neck Neck: Yes normal visual inspection Chest Chest palpation & inspection: normal inspection of the chest Resp Auscultation: clear to auscultation bilaterally Cardio Palpation: normal PMI Heart sounds: S1 normal heart sound present, S2 normal heart sound present, no gallops, no murmurs and no rubs GI Palpation (GI): Soft to palpation Back/Spine/Pelvis Other: unremarkable Skin General skin exam: no rashes or lesions noted Neuro General: patient oriented x3 Extrem General: Yes normal to inspection Psych Mental Status: mental status grossly normal Assessment & Plan Assessment & Plan (1) LBBB (left bundle branch block): Code(s): I44.7 - Left bundle-branch block, unspecified Category: Medical (2) NICM (nonischemic cardiomyopathy): Code(s): I42.8 - Other cardiomyopathies Category: Medical Plan Cardiac data reviewed. In the most recent echocardiogram, LVEF is 30-35%. Prior to that, it has been described to be 35-40%. Overall, moderately reduced. Cardiac catheterization from 08/2023 shows normal coronary arteries. Cardiomyopathy likely due to left bundle-branch block. With regard to medications, he is only on Entresto. Due to low blood pressure, he is not on any other medications. No active heart failure symptoms or signs. Not on regular diuretics. Otherwise, he is inquiring but possibility of amyloidosis and hence we can request PYP scan. Awaiting EP appointment for ENVIRONMENTAL COMPLIANCE OFFICER discussion. Follow-up 4 months. Orders: Orders NM PYP Card Amyld SPECT w CT Today I42.8 - Other cardiomyopathies, I44.7 - Left bundle-branch block, unspecified Coding Level of Care Code Est Pt Level 4 (39218) Diagnoses LBBB (left bundle branch block) I44.7 NICM (nonischemic cardiomyopathy) I42.8
== END 2023-12-22 13:00 | disposition home or self-care (01) ==
PROVIDERS: PCP Internal Medicine; Visit Provider Internal Medicine
DX: I44.7 Left bundle-branch block, unspecified (principal); I42.8 Other cardiomyopathies
CPT/HCPCS: 99214

== ENCOUNTER → 2023-12-22 12:38 | Outpatient (BNVA) | payer MEDICARE, SELFPAY | PROVIDERS: PCP Internal Medicine; Visit Provider Internal Medicine | DX: I44.7 Left bundle-branch block, unspecified (principal); I42.8 Other cardiomyopathies | CPT/HCPCS: 99212 ==

== ENCOUNTER → 2024-02-24 10:19 | Outpatient (REF) | payer MEDICARE, SELFPAY ==
--- NOTE | ~2024-02-24 | NM_ITS ---
EXAMINATION: TC-PYP CARDIAC STUDY CLINICAL INFORMATION: Evaluation for cardiac amyloidosis. 73 years old Male with cardiomyopathy COMPARISON None available. TECHNIQUE: 25 mCi of Tc-99m pyrophosphate was injected intravenously. Planar images of the chest were obtained in the anterior and left lateral views at 3 hours. SPECT-CT images of the chest were also obtained. FINDINGS: 1. Image Quality: Adequate 2. Semi-quantitative visual scoring of the cardiac uptake is performed as follows: 3 = high cardiac uptake > bone uptake, but in focal area of the myocardium and not through the entire myocardium 3. H-CL Ratio if Applicable: 1.33 4. Ancillary Finds: NM/NM PYP Card Amyld SPECT w CT IMPRESSION: 1. 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 Clinical correlation suggested 2. Please note that the Tc-99m PYP is more sensitive in detecting transthyretin-related cardiac amyloidosis than that of light-chain cardiac amyloidosis. Electronically signed by: Yfn Peres MD 02/26/2024 02:48 PM SLIME
== END ==
LOC: HO.NUCMED 10:19
PROVIDERS: PCP Internal Medicine; Visit Provider Internal Medicine
DX: I42.8 Other cardiomyopathies (principal); I44.7 Left bundle-branch block, unspecified
CPT/HCPCS: 78830; A9538

== ENCOUNTER → 2024-02-24 10:22 | Outpatient (BNV) | payer MEDICARE, SELFPAY | PROVIDERS: PCP Internal Medicine; Visit Provider Internal Medicine Cardiovascular Disease | DX: E85.82 Wild-type transthyretin-related (ATTR) amyloidosis (principal) | CPT/HCPCS: 78830 ==

== ENCOUNTER 2024-05-04 07:37 | Outpatient (REF) | payer MEDICARE, SELFPAY ==
[2024-05-04 09:08] LABS: B Type Natriuretic Peptide 30 pg/mL (<100)
[2024-05-04 11:00] LABS: Anion Gap 9 (12-20); Blood Urea Nitrogen 18 mg/dL (9-16); Calcium 9.3 mg/dL (8.4-10.2); Carbon Dioxide 27 mmol/L (22-29); Chloride 108 mmol/L (96-108); Estimated Glomerular Filt Rate > 60; Glucose Random 98 mg/dL (60-115); Potassium 5.2 mmol/L (3.3-5.1); Sodium 139 mmol/L (135-145)
== END 2024-05-04 07:38 | disposition home or self-care (01) ==
LOC: HO.HMGCLDS 07:37
PROVIDERS: PCP Internal Medicine; Visit Provider Internal Medicine
DX: I50.9 Heart failure, unspecified (principal)
CPT/HCPCS: 36415; 80048; 83880

== ENCOUNTER 2024-06-08 13:34 | Outpatient (AMB) | payer MEDICARE, SELFPAY ==
[2024-06-08 13:45] VITALS: BP 118/60; PULSE 92; BMI 24.2
--- NOTE | 2024-06-08 13:45 | MHC.OFFVIS ---
Vital Signs 06/08/24 13:45 Height 6 ft Weight 178 lb 9.191 oz BMI 24.2 BP 118/60 Blood Pressure Location Lt brachial Position Sitting Pulse 92 Pulse Source Monitor Intake Visit Reasons: 4 mth s/p amyloid scan Allergies Sulfa (Sulfonamide Antibiotics) Allergy (Unknown, Verified 08/12/23 10:35) hives sulfamethoxazole [From Bactrim] Allergy (Unknown, Verified 08/12/23 10:35) HIVES trimethoprim [From Bactrim] Allergy (Unknown, Verified 08/12/23 10:35) HIVES Medication List - Last Reconciled 06/08/24 by Kwame Patricio MD finasteride 5 mg PO DAILY 90 days fluticasone propionate 50 mcg/actuation 1 spray intranasal DAILY sacubitril-valsartan 24-26 mg (Entresto) 1 tab PO BID sertraline 100 mg PO DAILY tafamidis 61 mg PO DAILY HPI Comments Details: Raúl returns for follow-up. To recall, he originally came for hernia surgery and noted to have left bundle-branch block pattern on the EKG. Subsequently, cardiac workup showed cardiomyopathy. During a prior visit, he was describing a sensation of ' truck parked on his chest'. He was also having some shortness of breath at times. This led to cardiac catheterization but normal coronary arteries. He underwent further workup with PYP scan that was positive for amyloid. Has seen heart failure specialist at [facility] and underwent cardiac MRI. Report is still pending. He has been started on Tafamadis. [facility] Medical History Arthritis Depression BPH (benign prostatic hyperplasia) Surgical History S/P cardiac catheterization Hx of sinus surgery History of tonsillectomy History of prostate biopsy History of left inguinal hernia repair History of carpal tunnel release History of colonoscopy Family History Father No problems noted. Mother No problems noted. Social History Are you a primary infant childcare provider to a significant other at home: No Do you presently have visiting nurse or other home services: No Alcohol intake: never Patient Tobacco Use Status: Never used Tobacco Review of Systems Const Denies weakness ENT Denies dizziness Card Denies chest pain, Denies chest pain with activity, Denies syncope, Denies rapid heart rate, Denies pedal edema, Denies edema, Denies leg edema, Denies lightheadedness, Denies palpitations, Denies dyspnea, Denies dyspnea on exertion and Denies orthopnea Resp Denies cough, Denies dyspnea and Denies dyspnea on exertion GI Denies hematochezia and Denies change in stool character Musc Denies abnormal gait, Denies muscle cramps, Denies muscle weakness, Denies numbness, Denies radiating pain into limb and Denies tingling Neuro Denies abnormal gait, Denies dizziness, Denies syncope, Denies numbness, Denies tingling and Denies weakness Endo Denies palpitations Physical Exam Vital Signs: Last Vital Signs Pulse 92 06/08/24 13:45 BP 118/60 06/08/24 13:45 BMI result Body Mass Index 24.2 Const General: comfortable and no acute distress Orientation/consciousness: patient oriented x3 HEENT Other: Unremarkable Head: Yes normal to inspection Neck Neck: Yes normal visual inspection Chest Chest palpation & inspection: normal inspection of the chest Resp Auscultation: clear to auscultation bilaterally Cardio Palpation: normal PMI Heart sounds: S1 normal heart sound present, S2 normal heart sound present, no gallops, no murmurs and no rubs GI Palpation (GI): Soft to palpation Back/Spine/Pelvis Other: unremarkable Skin General skin exam: no rashes or lesions noted Neuro General: patient oriented x3 Extrem General: Yes normal to inspection Psych Mental Status: mental status grossly normal Office Procedures EKG Details: EKG with underlying sinus rhythm at 92/Min; nonspecific intraventricular conduction defect with left bundle morphology; nonspecific ST-T changes. 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 In the last echocardiogram, LVEF is 30-35%. Prior to that, it has been described to be 35-40%. Overall, moderately reduced. Cardiac catheterization from 08/2023 shows normal coronary arteries. 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 Cardiac MRI completed few days back but report is still pending. For medications, he is on Entresto. Home blood pressure readings are in the normal range. Try a very small dose of beta-blockers to see if he can tolerate or not. Not on regular diuretics as he has got no heart failure symptoms or signs. He was referred to EP last year for consideration of [employer] but not yet seen. We will request again. Heart failure consult noted and currently on Tafamadis. He can keep follow up with the heart failure team. Follow-up 4 months. Medications: New metoprolol succinate ER (Toprol XL) 12.5 mg (1/2 x 25 mg) PO DAILY 90 tabs 1RF Coding Level of Care Code Est Pt Level 4 (10683) Complex EM visit Add On G2211 Diagnoses LBBB (left bundle branch block) I44.7 NICM (nonischemic cardiomyopathy) I42.8 Amyloid heart disease E85.4; I43 CPT Codes EKG - CPT: 61966-[id number], Complete ([id number])
--- OUTSIDE RECORDS SUMMARY | 2024-06-08 16:09 | XMS_ITS | Continuity of Care Document ---
Author Organization [facility] Address [address] [place] [id number]- Care Team Providers Care Drier Transfer Car Operator Name Role Phone Colton Wang DO Primary Care Physician Encounter [facility] Date(s): 05/03/24 - 06/02/24 [facility] [address] [place] [id number]- Encounter Type: Triage Allergies, Adverse Reactions, Alerts Substance Criticality Severity Reaction Reaction Severity Status Bactrim Active Medications Centrum Silver Therapeutic Multiple Vitamins with Minerals oral tablet 1 tablet, By Mouth, Daily, # 30 tablet, 0 Refills, Maintenance, 05/09/24 9:01:00 AM EST, Tablet, Partial fill upon patient request if the prescription is for a schedule II opioid drug. Start Date: 05/09/24 Status: Ordered Quantity: 30.0 Unit: tablet Repeat number: 1 Entresto 24 mg-26 mg oral tablet 1 tablet, By Mouth, 2 times a day, # 60 tablet, 0 Refills, Maintenance, 09/01/23 12:21:00 PM EDT, Tablet, Partial fill upon patient request if the prescription is for a schedule II opioid drug. Start Date: 09/01/23 Status: Ordered Quantity: 60.0 Unit: tablet Repeat number: 1 Finasteride = 5 mg, By Mouth, Daily, 0 Refills, Maintenance, 09/01/23 12:20:00 PM EDT, Partial fill upon patientrequest if the prescription is for a schedule II opioid drug. Start Date: 09/01/23 Status: Ordered Repeat number: 1 Flonase Allergy Relief 50 mcg/inh nasal spray 1 sprays = 50 mcg, Nares, Both, Daily, shake well before using, # 9.9 mL, 0 Refills, Maintenance, 09/01/23 12:21:00 PM EDT, [place], Partial fill upon patient request if the prescription is for a schedule II opioid drug. Start Date: 09/01/23 Status: Ordered Quantity: 9.9 Unit: mL Repeat number: 1 tafamidis 61 mg oral capsule 1 capsule = 61 mg, By Mouth, Daily, swallow whole, # 90 capsule, 3 Refills, Maintenance, 05/20/24 11:14:00 AM EST, Capsule, [facility], Partial fill upon patient request if the prescription is for a schedule II opioid drug., 185.42, cm, 05/09/24 9:02:00 EST, Height Start Date: 05/20/24 Status: Ordered Quantity: 90.0 Unit: capsule Repeat number: 4 Zoloft 100 mg oral tablet 1 tablet = 100 mg, By Mouth, Daily, # 30 tablet, 0 Refills, Maintenance, 09/01/23 12:21:00 PM EDT, Tablet, Partial fill upon patient request if the prescription is for a schedule II opioid drug. Start Date: 09/01/23 Status: Ordered Quantity: 30.0 Unit: tablet Repeat number: 1 Patient Care team information Care Team Personnel Name: Colton Wang DO Position: Reference Physician Member Role: PCP Address: [address] [place] [address] Colton Wang MD [address] Telecom: Care Team Related Persons Name: CRISSY TORRES Insurance Providers Guarantor name: BATSHEVA ROCKY Health Plan Information #: 1 Payer: MEDICARE PART B OUTPT Member Number: NA Policy Number: NA Group Number: NA Health Plan Information #: 2 Payer: MEDEX Member Number: NA Policy Number: NA Group Number: NA
== END 2024-06-08 14:09 | disposition home or self-care (01) ==
PROVIDERS: PCP Internal Medicine; Visit Provider Internal Medicine
DX: I44.7 Left bundle-branch block, unspecified (principal); I42.8 Other cardiomyopathies; E85.4 Organ-limited amyloidosis; I43 Cardiomyopathy in diseases classified elsewhere
CPT/HCPCS: 93010; 99214; G2211

== ENCOUNTER → 2024-06-08 13:34 | Outpatient (BNVA) | payer MEDICARE, SELFPAY | PROVIDERS: PCP Internal Medicine; Visit Provider Internal Medicine | DX: I44.7 Left bundle-branch block, unspecified (principal); E85.4 Organ-limited amyloidosis; I42.8 Other cardiomyopathies; I45.4 Nonspecific intraventricular block; R94.31 Abnormal electrocardiogram [ECG] [EKG] | CPT/HCPCS: 93005; 99212 ==

== ENCOUNTER 2024-06-15 10:07 | Outpatient (AMB) | payer MEDICARE, SELFPAY ==
--- NOTE | 2024-06-15 10:14 | A.OFFPC_ITS ---
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 Allergies Sulfa (Sulfonamide Antibiotics) Allergy (Unknown, Verified 06/15/24 11:03) hives sulfamethoxazole [From Bactrim] Allergy (Unknown, Verified 06/15/24 11:03) HIVES trimethoprim [From Bactrim] Allergy (Unknown, Verified 06/15/24 11:03) HIVES Medication List - Last Reconciled 06/15/24 by Briseyda Kirkpatrick PA-C finasteride 5 mg PO DAILY 90 days fluticasone propionate 50 mcg/actuation 1 spray intranasal DAILY sacubitril-valsartan 24-26 mg (Entresto) 1 tab PO BID sertraline 100 mg PO DAILY tafamidis 61 mg PO DAILY PFSH Medical History (Updated 06/15/24 @ 11:14 by Briseyda Kirkpatrick PA-C) TMJ dysfunction B12 deficiency History of kidney stones Anxiety Arthritis Depression BPH (benign prostatic hyperplasia) Surgical History (Updated 06/15/24 @ 11:14 by Briseyda Kirkpatrick PA-C) S/P cardiac catheterization Hx of sinus surgery History of tonsillectomy History of prostate biopsy History of left inguinal hernia repair History of carpal tunnel release History of colonoscopy (~06/22/14) Family History Father No problems noted. Mother No problems noted. Social History Are you a primary hearing care practitioner to a significant other at home: No Do you presently have visiting nurse or other home services: No Alcohol intake: never Patient Tobacco Use Status: Never used Tobacco Physical exam (Primary Care) Vital Signs: Last Vital Signs Temp 97.2 F 06/15/24 10:22 Pulse 92 06/15/24 10:22 BP 115/54 L 06/15/24 10:22 Pulse Ox 96 06/15/24 10:22 Care Plan Goal for BP management: 130/80 at goal BMI result Body Mass Index 25.6 BMI Assessment/Plan discussion: High BMI High, discussed plan: lifestyle, weight reduction, dietary, physical activity and alcohol moderation Tobacco/Smoking Status: Tobacco use Status Patient Tobacco Use Status Never used Tobacco 06/15/24 10:16 Coding Level of Care Code Est Pt Level 4 (33792) Complex EM visit Add On G2211 Diagnoses Amyloid heart disease E85.4; I43 S/P cardiac catheterization Z98.890 NICM (nonischemic cardiomyopathy) I42.8 LBBB (left bundle branch block) I44.7 Pulmonary nodule R91.1 BPH (benign prostatic hyperplasia) N40.0 TMJ dysfunction M26.609 B12 deficiency E53.8 Anxiety F41.9 Arthritis M19.90 Depression F32.A Assessment & Plan Assessment & Plan (1) 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 Patricio. Patient to continue a Entresto 24-26 mg 1 tablet b.i.d. and Taramidid 61 mg daily. Condition is chronic and stable continue to monitor. (2) S/P cardiac catheterization: Comment: 09/01/[address] Bauer Cardiac Arteries and Lesion Findings LMCA: Normal. LAD: Normal. LCx: Normal. RCA: Normal. Hemodynamic: Normal systemic pressures. Normal LVEDP. There is no gradient across aortic valve on pullback. Code(s): Z98.890 - Other specified postprocedural states Category: Surgical Plan: Patient being followed by cardiology at [facility] and with Dr. Patricio. Patient to continue a Entresto 24-26 mg 1 tablet b.i.d. and Taramidid 61 mg daily. Condition is chronic and stable continue to monitor. (3) NICM (nonischemic cardiomyopathy): Code(s): I42.8 - Other cardiomyopathies Category: Medical Plan: Patient being followed by cardiology at [facility] and with Dr. Patricio. Patient to continue a Entresto 24-26 mg 1 tablet b.i.d. and Taramidid 61 mg daily. Condition is chronic and stable continue to monitor. (4) LBBB (left bundle branch block): Code(s): I44.7 - Left bundle-branch block, unspecified Category: Medical Plan: Patient being followed by cardiology at [facility] and with Dr. Patricio. Patient to continue a Entresto 24-26 mg 1 tablet b.i.d. and Taramidid 61 mg daily. Condition is chronic and stable continue to monitor. (5) Pulmonary nodule: Code(s): R91.1 - Solitary pulmonary nodule Category: Medical Plan: Condition is chronic and stable continue to monitor. (6) BPH (benign prostatic hyperplasia): Code(s): N40.0 - Benign prostatic hyperplasia without lower urinary tract symptoms Category: Medical Plan: Patient to continue being followed by Urology. Patient to continue finasteride 5 mg daily. Condition is chronic and stable continue to monitor. (7) TMJ dysfunction: Code(s): M26.609 - Unspecified temporomandibular joint disorder, unspecified side Category: Medical Plan: Condition is chronic and stable continue to monitor. (8) B12 deficiency: Code(s): E53.8 - Deficiency of other specified B group vitamins Category: Medical Plan: Condition is chronic and stable continue to monitor. (9) Anxiety: Code(s): F41.9 - Anxiety disorder, unspecified Category: Medical Plan: Patient to continue sertraline 100 mg daily. Condition is chronic and stable continue to monitor. (10) Arthritis: Code(s): M19.90 - Unspecified osteoarthritis, unspecified site Category: Medical Plan: Condition is chronic and stable continue to monitor. (11) Depression: Code(s): F32.A - Depression, unspecified Category: Medical Plan: Patient to continue sertraline 100 mg daily. Condition is chronic and stable continue to monitor. Plan Plan Patient was informed and verbally consented to the use of an ambient scribe for clinic note documentation during this visit. 1. Vitamin B12 Deficiency Continue with current oral supplementation; monitor B12 levels periodically to ensure adequate absorption and resolution of deficiency. 2. Osteoarthritis Maintenance plan includes administering cortisone injections for knee pain management. Patient advised to report any changes in symptoms or response to treatment. 3. Carpal Tunnel Syndrome Symptom relief achieved through wrist braces and periodic cortisone injections. Advise on maintaining regular follow-up appointments for symptom monitoring. 4. Hyperlipidemia Implement dietary changes and regular monitoring of lipid profile as part of a comprehensive cardiovascular risk reduction plan. 5. Neuropathic heredofamilial amyloidosis Tafamidis to be continued as directed by the specialist; patient should adhere to follow-up appointments with cardiology. 6. Depressive Disorder Continue with prescribed Sertraline for management of depressive symptoms. Ensure timely follow-up for medication monitoring and efficacy assessment. 7. Hyperkalemia Emphasis on dietary potassium restriction; re-evaluate through follow-up labs to prevent complications. Discussion Notes I discussed with the patient the management for his chronic conditions, particularly emphasizing the need for medication adherence, specifically with Sertraline, Entresto, and Tafamidis. The patient is advised on dietary changes to manage mild hyperkalemia and hyperlipidemia. We reviewed the scheduling of regular follow-ups to ensure proper management of lipids and potassium levels and to monitor the status of carpal tunnel syndrome and osteoarthritis. I recommended regular check-ins with his biometrics instructor concerning amyloidosis. Orders: Orders Complete Blood Count Auto Diff Today Z00.00 - Encounter for general adult medical examination without abnormal findings Comprehensive [place]. Panel Fast Today Z00.00 - Encounter for general adult medical examination without abnormal findings Lipid Panel Today Z00.00 - Encounter for general adult medical examination without abnormal findings Magnesium Today Z00.00 - Encounter for general adult medical examination without abnormal findings Vitamin B12 and Folate Today Z00.00 - Encounter for general adult medical examination without abnormal findings PSA,Total (Free>4and<10) Today Z00.00 - Encounter for general adult medical examination without abnormal findings Vitamin D 25-OH Total Today Z00.00 - Encounter for general adult medical examination without abnormal findings C Reactive Protein Today Z00.00 - Encounter for general adult medical examination without abnormal findings Hemoglobin A1c Today Z00.00 - Encounter for general adult medical examination without abnormal findings Liver Panel Today Z00.00 - Encounter for general adult medical examination without abnormal findings Vitamin B1 Today Z00.00 - Encounter for general adult medical examination without abnormal findings TSH reflex Free T4 Today Z00.00 - Encounter for general adult medical examination without abnormal findings Medications: New sertraline 100 mg PO DAILY 90 tabs 1RF Patient Instructions: Patient Instructions - Continue taking your prescribed medications as directed. - Schedule and maintain your physical and specialist follow-up appointments. - Follow a potassium-restricted diet to address elevated potassium levels. - Implement a heart-healthy diet to manage cholesterol levels. - Monitor your symptoms and notify your healthcare provider of any changes. - Follow any advice provided by your biometrics instructor, especially concerning amyloidosis management. - Obtain fasting blood work drawn at any affiliated medical service location as previously discussed. Scribe Plan - Not visible on output: History of Present Illness The patient is a 74-year-old male presenting for chronic disease management and medication assessment. He has a history of psychiatric conditions managed with Sertraline, for which he seeks a refill. His musculoskeletal complaints include osteoarthritis with joint pain alleviated by cortisone injections and carpal tunnel syndrome managed with wrist braces and injections as required. The patient's urologic history is significant for nephrolithiasis, with no recent episodes. B12 deficiency is controlled with oral supplementation in the past. In cardiology, he is monitored for amyloidosis and a left bundle branch block contributing to a reduced ejection fraction, necessitating medications including Entresto and Tafamidis. He reports chronic dyspnea, with no current oxygen support, and might require a future pacemaker implant. His preventive screenings are up-to-date with a colonoscopy conducted in 2014, and he has been advised to monitor his hyperlipidemia and hyperkalemia through dietary modifications and follow-up lab testing. Social History - Lives with his , Susan. - No home health assistance or daily living support services currently provided. - Reports that he and his manage independently. - Denies the need for a visiting nurse or additional home care services. - Humorously notes good sensory function, attributing it to familial traits. Review of Systems - Neurologic: Reports shortness of breath. - Gastrointestinal: Denies black or bloody stools. - Genitourinary: Denies blood in urine. - Constitutional: Denies weight loss or weight gain. Physical Exam Appearance: Alert. Oriented X3. No acute distress. Head: Normal external exam. Normocephalic. Atraumatic. Eyes: Pupils are equal, round, and reactive to light. Extraocular movements intact. Conjunctiva and sclera normal. Eyelids normal. Ears: External auditory canal normal. Tympanic membranes normal. Throat: Pharynx normal. Uvula midline. Moist mucous membranes. Neck: Normal inspection. Neck supple. Full range of motion. No adenopathy. Thyroid Normal. No meningeal signs. No neck mass noted. Cardiovascular: Normal heart rate and rhythm. Heart sound normal. No murmurs noted. Pulses normal throughout. Respiratory: No respiratory distress. Painless inspiration. Breath sounds normal. No wheezes/rales/rhonchi noted. Chest nontender. No accessory muscle usage noted or decreased air movement noted. Abdomen: Soft and nontender. Bowel sounds normal in all 4 quadrants. No distention noted. No organomegaly noted. No visible injury noted. Back: No costovertebral angle tenderness. Full range of motion noted. Skin: Skin warm and dry. Normal skin color. Normal skin turgor. No rashes/lesions/lacerations noted. Extremities: No lower extremity edema. Extremities exhibit normal range of motion. Extremities nontender. Neuro: Oriented X 3. No motor deficit. No sensory deficit. Reflexes normal. Results - Labs: Potassium slightly elevated at 5.2, LDL at 114 mg/dL, HDL at 51 mg/dL, triglycerides at 45 mg/dL, total cholesterol at 174 mg/dL.
[2024-06-15 10:22] VITALS: BP 115/54; PULSE 92; TEMP 36.2; O2SAT 96; BMI 25.6
--- OUTSIDE RECORDS SUMMARY | 2024-06-15 11:32 | XMS_ITS | Continuity of Care Document ---
Author Organization [facility] Address [address] [place] [id number]- Care Team Providers Care Pocket And Pulley Machine Operator Name Role Phone Colton Wang DO Primary Care Physician Encounter [facility] Date(s): 05/09/24 - 06/08/24 [facility] [address] [place] [id number]- Attending Physician: Dot Greenberg Admitting Physician: Dot Greenberg Referring Physician: AdmtrDot Encounter Type: Triage Allergies, Adverse Reactions, Alerts [...] 0 Refills, Maintenance, 09/01/23 12:21:00 PM EDT, [place], Partial fill upon patient request if the prescription is for a schedule II opioid drug. Start Date: 09/01/23 Status: Ordered Quantity: 9.9 Unit: mL Repeat number: 1 tafamidis 61 mg oral capsule 1 capsule = 61 mg, By Mouth, Daily, swallow whole, # 90 capsule, 3 Refills, Maintenance, 05/20/24 11:14:00 AM EST, Capsule, [facility], Partial fill upon patient request [...] Quantity: 30.0 Unit: tablet Repeat number: 1 Cardiology Outpatient Note * Rosy Bay MD: PERFORM, MODIFY, MODIFY, MODIFY, MODIFY, MODIFY Event Display: Cardiology Note Office Authored Date: [id number] Patient: ??BATSHEVA HIDALGO ? Age:??74 Years?Sex:??Male?:??1950?? Indication for Consult History and PYP study concerning for amyloidosis. History of Present Illness/Interval History Batsheva Hidalgo is a 74 year old male with history of LBBB and non ischemic cardiomyopathy with reduced??ejection fraction of 30-35% who presents now to heart failure clinic for new patient appointment after his primary landscape photographer worked him up for cardiac amyloidosis. ?? Per [facility] cardiology notes scanned in patient was initially evaluated after he was found to have LBBBon EKG during workup before inguinal surgery. Subsequent workup revealed cardiomyopathy by echo with EF 30-35%.??Patient underwent cardiac cath in 08/2023 due to chest pain and SOB which revealed no coronary artery disease suggestive of nonischemic cardiomyopathy. His primary landscape photographer had started him on Entresto alone with no diuretics and he is also undergoing consideration for RECOVERY ASSISTANT with EP. ?? Today patient reports that his landscape photographer ordered nuclear imaging because he was watching a commercial about cardiac amyloidosis and related to the symptoms. Specifically he is a male greater than 50 years of age with history of bilateral carpal tunnel with surgical intervention 20 years ago and recurrence of symptoms since then. He also endorses carpal tunnel symptoms and paraesthesias to his b ilateral hands, mostly his thumbs. He endorses shortness of breath and dyspnea on exertion. He usedto be able to carry four laundry baskets up the stairs a year or two ago and now struggles with onebasket. He is able to walk approximately 1 mile on flat ground before becoming short of breath, used to walk 4-5 miles easily. Today he says that he generally feels good just short of breath and has made changes to his lifestyle including no alcohol and cutting out high cholesterol sources like eggyolks. ?? Labs:??Electrolytes largely within normal limits with potassium??slightly elevated to 5.2.??BNP of 30.?BUN 18 and Creatinine 0.93. Cardiac cath: 08/2023 No significant coronary artery disease. Echo: 09/2023 Ejection fraction of 30-35% with increased left ventricular wall thickness. PYP Nuc Imaging:??Grade 2 PYP uptake. ?? Other History: Social History: Lives in [place] with Crissy and are independent without services. No children. No smoking history and stopped drinking alcohol 3 years ago per PCP recommendation. 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 Surgical History: Bilateral carpal tunnel release 20 years ago, inguinal hernia repair, tonsillectomy, prostate biopsy, knee arthroscopy, cardiac catheterization. Family history: Mother at 102 due to old age. Father at 79 with history of stroke and [place]. Brother with Parkinson's. Review of Systems No chest pain, palpitations, orthopnea, PND, abdominal fullness, leg swelling. Physical Exam Vitals & Measurements Weight lb/oz: 186 lb 15 oz Blood pressure 96/64 Heart rate 161 and O2 sat 97 ?? General:??No acute distress, sitting up comfortably Respiratory:??Clear to auscultation bilaterally, no increased work of breathing, no wheezes/crackles Cardiovascular:??Normal rate, regular rhythm, no murmurs, negative JVD with no HJR Musculoskeletal:??No pitting edema to lower extremities Skin:??Warm and dry Assessment/Plan Batsheva Hidalgo is a 74 year old male with history of LBBB and non ischemic cardiomyopathy with reduced??ejection fraction of 30-35% who presents now to heart failure clinic for new patient appointment??for concern of??cardiac amyloidosis. ?? Patient is a male > 50 years of age with history of bilateral carpal tunnel with increased wall thickness on echo imaging and PYP grade 2 uptake concerning for amyloidosis. BNP of 30 and Creatinine 0.93. No clinical signs of heart failure, not on a diuretic, and no hospitalizations for heart failure exacerbation. At this time we will pursue noninvasive workup and rule out AL subtype of amyloidosis with serum and urine immunofixation and light chain studies. If these studies are negative then its likely that the PYP uptake sensitivity is adequate and we will initiate patient on [id number] mg daily. If patient still has symptoms of shortness of breath in 3 months then will likely warrant consideration for RECOVERY ASSISTANT given his conduction disease. Counseled on lifestyle modifications including healthy food choices with the Mediterranean diet??and increasing exercise with 15-30 minutes several times per week. ?? Problems: 1. HFrEF (30-35%) Stage B NYHA II 2. Nonischemic cardiomyopathy 3. LBBB ?? Plan: - Serum and urine immunofixation and light chain studies - If these studies are negative will initiate patient on tafamidis 61mg daily - Cardiac MRI to assess LV function and staging - Continue Entresto - Check Blood Pressure daily leading up to Primary Cardiology appointment - If blood pressure tolerates recommend that Primary Fitness Services Manager starts beta zulay at that time - Will further discuss genetic testing at the next appointment, no children ?? Patient's case and plan discussed with attending physician ??Marisa. Rosy Bay MD Internal Medicine PGY-1 Allergies Bactrim Home Medications Finasteride: 5 mg, By Mouth, Daily Fluticasone Nasal: 50 mcg = 1 sprays, Nares, Both, Daily, shake well before using Multivitamin With Minerals: 1 tablet, By Mouth, Daily sacubitril-valsartan: 1 tablet, By Mouth, 2 times a day Sertraline: 100 mg = 1 tablet, By Mouth, Daily Diagnostic Impression ECG ECG 12-Lead * Preliminary * ?? 08:52:37 Ventricular Rate: 100 BPM Atrial Rate: 100 BPM P-R Interval: 166 ms QRS Duration: 134 ms Q-T Interval: 388 ms QTC Calculation(Bazett): 500 ms P Newhall: 53 degrees R Newhall: -61 degrees T Newhall: 46 degrees Normal sinus rhythm Left axis deviation Left bundle branch block Abnormal ECG When compared with ECG of 01-Sep-2023 11:51, No significant change was found ?? [place]: , ?? ECG 12-Lead * Preliminary * ?? 08:52:37 Please click on pdf link to open report Stress Test No qualifying data available. Problem List/Past Medical History Ongoing No qualifying data Procedure/Surgical History No qualifying data available. * Curly Cunningham DO: PERFORM Event Display: Cardiology Note Office Authored Date: Attending Attestation:??I have seen and evaluated this patient.?? I have discussed the case and itsmanagement with the resident and agree with the findings and plan as documented in the resident???snote. Patient Care team information Care Team Personnel Name: Colton Wang DO Position: Reference Physician Member Role: PCP Address: [address] [place] [address] [place] [id number]- Telecom: Care Team Related Persons Name: CRISSY TORRES Insurance Providers Guarantor name: BATSHEVA HIDALGO Health Plan Information #: 1 Payer: MEDICARE PART B OUTPT Member Number: NA Policy Number: NA Group Number: NA Health Plan Information #: 2 Payer: MEDEX Member Number: NA Policy Number: NA Group Number: NA
== END 2024-06-15 10:58 | disposition home or self-care (01) ==
LOC: HO.HMCSH 10:07
PROVIDERS: PCP Internal Medicine; Visit Provider Physician Assistant Medical
DX: E85.4 Organ-limited amyloidosis (principal); I43 Cardiomyopathy in diseases classified elsewhere; Z98.890 Other specified postprocedural states; I42.8 Other cardiomyopathies; I44.7 Left bundle-branch block, unspecified; R91.1 Solitary pulmonary nodule; N40.0 Benign prostatic hyperplasia without lower urinary tract symptoms; M26.609 Unspecified temporomandibular joint disorder, unspecified side; E53.8 Deficiency of other specified B group vitamins; F41.9 Anxiety disorder, unspecified; M19.90 Unspecified osteoarthritis, unspecified site; F32.A Depression, unspecified

== ENCOUNTER 2024-06-15 12:32 | Outpatient (AMB) | payer MEDICARE, SELFPAY ==
--- NOTE | 2024-06-15 12:36 | A.OFFVIS_ITS ---
Vital Signs 06/15/24 12:39 Height 5 ft 11.5 in Weight 185 lb 6.54 oz BMI 25.5 BP 110/70 Blood Pressure Location Lt brachial Position Sitting Pulse 79 Pulse Source Pulse Oximeter Pulse Oximetry (%) 96 Oxygen Delivery Method Room Air Intake Visit Reasons: OA Intake Note: PT presents today for osteoarthritis. Pt states that they have been having carpel tunnel pain and is looking to get an injection in both hand. Allergies Sulfa (Sulfonamide Antibiotics) Allergy (Unknown, Verified 06/15/24 12:40) hives sulfamethoxazole [From Bactrim] Allergy (Unknown, Verified 06/15/24 12:40) HIVES trimethoprim [From Bactrim] Allergy (Unknown, Verified 06/15/24 12:40) HIVES HPI HPI OA: Details: In the last 2 months he has been experiencing burning sensation in his right hand with numbness and paresthesia. He feels like there is increased pressure on his right hand at night. Because of numbness he can not feel his fingertips when he is holding things. Last cortisone injection for right carpal tunnel syndrome was 05/26/2023. Prior to onset of symptoms he was cutting wood. He has sharp shooting pain is left CMC that started a few weeks ago. He has a brace that he uses at home for his left wrists but takes it off it causes increased pain. 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 He reports his heart function is 30-40%. He sees a hadoop application developer and reports that there is no current treatment for his condition. COUNT INCLUDES THE [facility] Medical History TMJ dysfunction B12 deficiency History of kidney stones Anxiety Arthritis Depression BPH (benign prostatic hyperplasia) Surgical History S/P cardiac catheterization Hx of sinus surgery History of tonsillectomy History of prostate biopsy History of left inguinal hernia repair History of carpal tunnel release History of colonoscopy (~06/22/14) Family History Father No problems noted. Mother No problems noted. Social History Are you a primary ocular care technologist to a significant other at home: No Do you presently have visiting nurse or other home services: No Alcohol intake: never Patient Tobacco Use Status: Never used Tobacco Review of Systems Const All systems reviewed & are unremarkable except as noted in HPI and below Physical Exam Vital Signs: Last Vital Signs Pulse 79 06/15/24 12:39 BP 110/70 06/15/24 12:39 Pulse Ox 96 06/15/24 12:39 Oxygen Delivery Method Room Air 06/15/24 12:39 BMI result Body Mass Index 25.5 Const Other: General: Comfortable Skin: No skin lesions MSK: Tender to palpate left CMC with squaring present. No synovitis of any joint. 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 Heberden nodes present. Office Procedures AMB Joint Injection/Aspiration Joint Injection/Aspiration Details: Right carpal tunnel carpal tunnel carpal tunnel Prep: site was prepped using aseptic technique Injected: 20 mg of, Kenalog, with 0.5 mL of and 1% plain lidocaine Procedure: The patient tolerated the procedure well. Postprocedure protocol was discussed with patient. Coding Additional procedure code (CPT) needed (10138) Office Meds lidocaine (PF) 10 mg/mL (1 %) injection solution Performing Provider: Mahendra De La Torre MD Performing Location: [facility] Administered by: Mahendra De La Torre MD on 06/15/24 14:40 Dose Route Admin Location Dispensed Lot Number Expiration Date [facility] Inventory Control Analyst 5 mg Infiltration 2 mL [id number] [facility] Kenalog 40 mg/mL suspension for injection Performing Provider: Mahendra De La Torre MD Performing Location: [facility] Administered by: Mahendra De La Torre MD on 06/15/24 14:40 Dose Route Admin Location Dispensed Lot Number Expiration Date [facility] Inventory Control Analyst 20 mg Tendon Sheath Inj. 1 mL AP [id number] [employer] Assessment & Plan Assessment & Plan (1) Right carpal tunnel syndrome: Comment: Recurrent. He has failed carpal tunnel release surgery in the past. He has benefit with cortisone injections lasting at least a year. Code(s): G56.01 - Carpal tunnel syndrome, right upper limb Category: Medical Plan: Patient received cortisone injection to treat right carpal tunnel syndrome (2) Osteoarthritis of carpometacarpal (CMC) joint of both thumbs: Comment: Clinical diagnosis. Left pain is worse than right. Discussed conservative management. Prefers cortisone injection for treatment. Code(s): M18.0 - Bilateral primary osteoarthritis of first carpometacarpal joints Category: Medical Plan: X-ray bilateral hands ordered Left CMC splint ordered for patient Return to clinic in 3 weeks for left CMC cortisone injection Orders: Orders AMB Joint Injection/Aspiration Today G56.01 - Carpal tunnel syndrome, right upper limb XR hand RT min 3V Today G56.01 - Carpal tunnel syndrome, right upper limb, M18.0 - Bilateral primary osteoarthritis of first carpometacarpal joints Medications: New arm brace (Wrist Brace) As directed left CMC splint custom Dx: CMC osteoarthritis 1 ea 0RF arm brace (Wrist Brace) As directed left cmc custom splint Dx: osteoarthritis 1 ea 0RF lidocaine (PF) 5 mg (0.5 mL) Infiltration ONCE 0.5 mL 0RF G56.01 - Carpal tunnel syndrome, right upper limb Kenalog (triamcinolone acetonide) 20 mg (0.5 mL) Tendon Sheath Inj. ONCE 0.5 mL 0RF NS G56.01 - Carpal tunnel syndrome, right upper limb Coding Level of Care Code Est Pt Level 4 (17653) Complex EM visit Add On G2211 Diagnoses Right carpal tunnel syndrome G56.01 Osteoarthritis of carpometacarpal (CMC) joint of both thumbs M18.0
[2024-06-15 12:39] VITALS: BP 110/70; PULSE 79; O2SAT 96; BMI 25.5
== END 2024-06-15 13:47 | disposition home or self-care (01) ==
LOC: HO.RHES 12:32
PROVIDERS: PCP Internal Medicine; Visit Provider Internal Medicine Rheumatology
DX: G56.01 Carpal tunnel syndrome, right upper limb (principal); M18.0 Bilateral primary osteoarthritis of first carpometacarpal joints
CPT/HCPCS: 99214; G2211

== ENCOUNTER 2024-06-15 13:33 | Outpatient (REF) | payer MEDICARE, SELFPAY ==
--- NOTE | ~2024-06-15 | XR_ITS ---
EXAMINATION: XR HAND, RIGHT XR HAND, LEFT XR WRIST, RIGHT XR WRIST, LEFT CLINICAL INFORMATION: M18.0 - Bilateral primary osteoarthritis of first carpometacarpal joints COMPARISON: None available. TECHNIQUE: PA, lateral, oblique, and Norgaard views of each hand and wrist. FINDINGS: RIGHT HAND AND WRIST: No fracture or malalignment. Normal bone mineralization without periarticular osteopenia. Mild degenerative arthritis throughout the DIP joints, most significant in the second and fifth joint. Mild thumb IP joint arthritis. Mild to moderate arthritis at the STT joints and first CMC joint. There is very mild arthritis involving the first through third MCP joints. Carpal bones intact and normally aligned. There is chondrocalcinosis of the wrist. Mild radiocarpal narrowing. No blunting of the ulnar styloid. Mild negative ulnar variance. No gross erosions evident. No additional soft tissue abnormalities. LEFT HAND AND WRIST: No fracture or malalignment. Normal bone mineralization without periarticular osteopenia. Mild degenerative arthritis throughout the DIP joints, most significant in the second and fifth joint. Mild thumb IP joint arthritis. Mild to moderate arthritis at the STT joints and first CMC joint. There is very mild arthritis involving the first through third MCP joints. Carpal bones intact and normally aligned. There is chondrocalcinosis of the wrist. Mild radiocarpal narrowing. No blunting of the ulnar styloid. Mild negative ulnar variance. No gross erosions evident. No additional soft tissue abnormalities. XR/XR Hand Bilat min 3v IMPRESSION: 1. No acute bony abnormalities. 2. Symmetric degenerative arthritis most notable in the DIP joints of both hands. 3. Bilateral wrist chondrocalcinosis present suggesting possible superimposed inflammatory arthropathy, with very mild arthropathy of the first through third MCPs. No gross erosions. 4. Symmetric mild to moderate degenerative arthritis in the STT joints and first CMC joints. Electronically signed by: Francisco Sanchez MD 06/16/2024 08:23 AM EDT
== END 2024-06-15 13:34 | disposition home or self-care (01) ==
LOC: HO.HMGCX 13:33
PROVIDERS: PCP Physician Assistant Medical; Visit Provider Internal Medicine Rheumatology
DX: M18.0 Bilateral primary osteoarthritis of first carpometacarpal joints (principal); G56.01 Carpal tunnel syndrome, right upper limb; E85.4 Organ-limited amyloidosis; I43 Cardiomyopathy in diseases classified elsewhere; I42.8 Other cardiomyopathies; I44.7 Left bundle-branch block, unspecified; R91.1 Solitary pulmonary nodule; N40.0 Benign prostatic hyperplasia without lower urinary tract symptoms; M26.609 Unspecified temporomandibular joint disorder, unspecified side; E53.8 Deficiency of other specified B group vitamins; F41.9 Anxiety disorder, unspecified; M19.90 Unspecified osteoarthritis, unspecified site; F32.A Depression, unspecified; Z79.899 Other long term (current) drug therapy
CPT/HCPCS: 20526; 73130; 99212; J2003; J3300

== ENCOUNTER → 2024-06-15 13:51 | Outpatient (BNV) | payer MEDICARE, SELFPAY | PROVIDERS: PCP Physician Assistant Medical; Visit Provider Radiology Diagnostic Radiology | DX: M18.0 Bilateral primary osteoarthritis of first carpometacarpal joints (principal) | CPT/HCPCS: 73110; 73130 ==

== ENCOUNTER 2024-07-05 14:31 | Outpatient (AMB) | payer MEDICARE, SELFPAY ==
[2024-07-05 14:44] VITALS: BP 118/70; PULSE 88; O2SAT 96; BMI 25.4
--- NOTE | 2024-07-05 14:44 | MHC.OFFVIS ---
Vital Signs 07/05/24 14:44 Height 5 ft 11.5 in Weight 184 lb 8.43 oz BMI 25.4 BP 118/70 Blood Pressure Location Lt brachial Position Sitting Pulse 88 Pulse Source Pulse Oximeter Pulse Oximetry (%) 96 Oxygen Delivery Method Room Air Intake Visit Reasons: 07/05 2:40pm Intake Note: PT presents today for osteoarthritis. Allergies Sulfa (Sulfonamide Antibiotics) Allergy (Unknown, Verified 07/05/24 14:47) hives sulfamethoxazole [From Bactrim] Allergy (Unknown, Verified 07/05/24 14:47) HIVES trimethoprim [From Bactrim] Allergy (Unknown, Verified 07/05/24 14:47) HIVES HPI HPI 07/05 2:40pm: Details: He has had 80% relief with cortisone injection for treatment of right carpal tunnel syndrome. Splinting as help reduce pain. He is having pain when he is holding heavy objects in his left hand and over extends his thumb. Pain lasts for few hours but it is tolerable. He does not sleep at night with pain as he used to do before last visit. [facility] Medical History TMJ dysfunction B12 deficiency History of kidney stones Anxiety Arthritis Depression BPH (benign prostatic hyperplasia) Surgical History S/P cardiac catheterization Hx of sinus surgery History of tonsillectomy History of prostate biopsy History of left inguinal hernia repair History of carpal tunnel release History of colonoscopy (~06/22/14) Family History Father No problems noted. Mother No problems noted. Social History Are you a primary manager career to a significant other at home: No Do you presently have visiting nurse or other home services: No Alcohol intake: never Patient Tobacco Use Status: Never used Tobacco Review of Systems Const All systems reviewed & are unremarkable except as noted in HPI and below Physical Exam Vital Signs: Last Vital Signs Pulse 88 07/05/24 14:44 BP 118/70 07/05/24 14:44 Pulse Ox 96 07/05/24 14:44 Oxygen Delivery Method Room Air 07/05/24 14:44 BMI result Body Mass Index 25.4 Const Other: General: Comfortable Skin: No skin lesions MSK: Tender to palpate left CMC with squaring present. No synovitis of any joint. 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 Heberden nodes present. Normal thenar and hypothenar muscles. Assessment & Plan Assessment & Plan (1) Right carpal tunnel syndrome: Comment: Recurrent. Significant improvement of pain with last cortisone injection. History: He has failed carpal tunnel release surgery in the past. He has benefit with cortisone injections lasting at least a year. Code(s): G56.01 - Carpal tunnel syndrome, right upper limb Category: Medical Plan: RTC 1 year or sooner if needed for cortisone injection (2) Osteoarthritis of carpometacarpal (CMC) joint of both thumbs: Comment: Left pain is worse than right. Improvement with splinting. Personally reviewed x-rays with patient. Code(s): M18.0 - Bilateral primary osteoarthritis of first carpometacarpal joints Category: Medical Plan: Continue to wear Left CMC splint Return to clinic in 1 year or sooner if needed Coding Level of Care Code Est Pt Level 3 (86739) Complex EM visit Add On G2211 Diagnoses Right carpal tunnel syndrome G56.01 Osteoarthritis of carpometacarpal (CMC) joint of both thumbs M18.0
== END 2024-07-05 15:11 | disposition home or self-care (01) ==
LOC: HO.RHES 14:32
PROVIDERS: PCP Internal Medicine; Visit Provider Internal Medicine Rheumatology
DX: G56.01 Carpal tunnel syndrome, right upper limb (principal); M18.0 Bilateral primary osteoarthritis of first carpometacarpal joints
CPT/HCPCS: 99213; G2211

== ENCOUNTER → 2024-07-05 14:31 | Outpatient (BNVA) | payer MEDICARE, SELFPAY | PROVIDERS: PCP Internal Medicine; Visit Provider Internal Medicine Rheumatology | DX: M18.0 Bilateral primary osteoarthritis of first carpometacarpal joints (principal); G56.01 Carpal tunnel syndrome, right upper limb | CPT/HCPCS: 99212 ==

== ENCOUNTER 2024-08-01 07:53 | Outpatient (REF) | payer MEDICARE, SELFPAY ==
[2024-08-01 10:38] LABS: Prostate Specific Antigen 1.29 ng/mL (<0.05-4.0)
== END 2024-08-01 07:54 | disposition home or self-care (01) ==
LOC: HO.HMGCLDS 07:53
PROVIDERS: PCP Internal Medicine; Visit Provider Urology
DX: R97.20 Elevated prostate specific antigen [PSA] (principal); Z12.5 Encounter for screening for malignant neoplasm of prostate
CPT/HCPCS: 36415; 84153

== ENCOUNTER 2024-08-18 14:42 | Outpatient (AMB) | payer MEDICARE, SELFPAY ==
--- NOTE | 2024-08-18 14:50 | A.OFFVIS_ITS ---
Intake Visit Reasons: 1y/PSA/PVR Intake Note: Pt presents to the office today for a 1 year follow up/PSA/PVR. PVR:27ml Allergies Sulfa (Sulfonamide Antibiotics) Allergy (Unknown, Verified 08/18/24 14:50) hives sulfamethoxazole [From Bactrim] Allergy (Unknown, Verified 08/18/24 14:50) HIVES trimethoprim [From Bactrim] Allergy (Unknown, Verified 08/18/24 14:50) HIVES HPI Comments Details: Raúl is a pleasant male. He is a patient Dr. Wang. He is seen for the following urologic conditions - elevated PSA - lower urinary tract symptoms Yearly follow-up PVR 30 cc Recent diagnosis of cardiac amyloidosis Discussed possible bladder presentations Lower urinary tract symptoms Better stream, emptying bladder Prior medications - tamsulosin and finasteride Nocturia x2-3 Current symptoms - improved stream Elevated PSA 02/24 5.6, 02/25 2.2, 08/26 1.8 Prior prostate biopsy a number of years ago [facility] Medical History TMJ dysfunction B12 deficiency History of kidney stones Anxiety Arthritis Depression BPH (benign prostatic hyperplasia) Surgical History S/P cardiac catheterization Hx of sinus surgery History of tonsillectomy History of prostate biopsy History of left inguinal hernia repair History of carpal tunnel release History of colonoscopy (~06/22/14) Family History Father No problems noted. Mother No problems noted. Social History Are you a primary child care sitter to a significant other at home: No Do you presently have visiting nurse or other home services: No Alcohol intake: never Patient Tobacco Use Status: Never used Tobacco Office Procedures Post Void Residual Post Residual Void Post Void Residual (PVR): 27 62062-Ecoq Void Residual by ultrasound Results AMB Urinalysis, Automated UA Leukoctes 0 Angel/uL Last Edit by Ariana Larson CMA on 08/18/24 15:06 UA Nitrite Negative Last Edit by Ariana Larson CMA on 08/18/24 15:06 UA Urobilinogen 0.2 mg/dL Last Edit by Ariana Larson CMA on 08/18/24 15:06 UA Protein 0 mg/dL Last Edit by Ariana Larson, JETHRO on 08/18/24 15:06 UA pH 5.5 Last Edit by Ariana Larson, JETHRO on 08/18/24 15:06 UA Blood 10 Gianluca/uL Last Edit by Ariana Larson, JETHRO on 08/18/24 15:06 UA Specific Metter 1.025 Last Edit by Ariana Larson, JETHRO on 08/18/24 15:06 UA Ketone Positive Last Edit by Ariana Larson, JETHRO on 08/18/24 15:06 UA Bilirubin 1 mg/dL Last Edit by Ariana Larson, JETHRO on 08/18/24 15:06 UA Glucose 0 mg/dL Last Edit by Ariana Larson, JETHRO on 08/18/24 15:06 Results Reviewed Results Reviewed: Laboratory Last Values Urine pH (Auto) 5.5 08/18/24 15:04 Specific Metter (Auto) 1.025 08/18/24 15:04 Urine Protein (Auto) 0 mg/dL 08/18/24 15:04 Glucose (UA)(Auto) 0 mg/dL 08/18/24 15:04 Urine Ketones (Auto) Positive 08/18/24 15:04 Urine Blood (Auto) 10 Gianluca/uL 08/18/24 15:04 Urine Nitrite (Auto) Negative 08/18/24 15:04 Urine Bilirubin (Auto) 1 mg/dL 08/18/24 15:04 Urine Urobilinogen (Auto) 0.2 mg/dL 08/18/24 15:04 Leukocyte Esterase (Auto) 0 Angel/uL 08/18/24 15:04 Assessment & Plan Assessment & Plan Orders: Orders AMB Post Void Residual by ultrasound Today N40.0 - Benign prostatic hyperplasia without lower urinary tract symptoms AMB Urinalysis Automated Today Z13.9 - Encounter for screening, unspecified Coding CPT Codes Post Residual Void - PVR CPT Code: 71334-Tqgh Void Residual by ultrasound ([id number])
== END 2024-08-18 15:44 | disposition home or self-care (01) ==
LOC: HO.HUSH 14:43
PROVIDERS: PCP Internal Medicine; Visit Provider Urology
DX: Z13.9 Encounter for screening, unspecified (principal)

== ENCOUNTER → 2024-08-18 14:42 | Outpatient (BNVA) | payer MEDICARE, SELFPAY | PROVIDERS: PCP Internal Medicine; Visit Provider Urology | DX: N32.81 Overactive bladder (principal); N40.0 Benign prostatic hyperplasia without lower urinary tract symptoms | CPT/HCPCS: 51798; 81003; 99212 ==

== ENCOUNTER 2024-11-17 14:46 | Outpatient (AMB) | payer MEDICARE, SELFPAY ==
--- NOTE | 2024-11-17 14:49 | A.OFFVIS_ITS ---
Vital Signs 11/17/24 14:50 Height 5 ft 11.5 in Weight 176 lb 9.444 oz BMI 24.3 BP 110/60 Blood Pressure Location Lt brachial Position Sitting Pulse 96 Pulse Source Pulse Oximeter Pulse Oximetry (%) 98 Oxygen Delivery Method Room Air Intake Visit Reasons: back pain Intake Note: PT presents today for osteoarthritis. Accompanied by: Self / Same As Patient Allergies Sulfa (Sulfonamide Antibiotics) Allergy (Unknown, Verified 08/18/24 14:50) hives sulfamethoxazole (From Bactrim) Allergy (Unknown, Verified 08/18/24 14:50) HIVES trimethoprim (From Bactrim) Allergy (Unknown, Verified 08/18/24 14:50) HIVES HPI HPI back pain: Details: Pacemaker placed in September. He was in recliner for 3 weeks, which led to onset of right hip pain. He has pain with leaning forward that occurs in the right hip region/buttocks region radiating down to his leg. He has difficulty walking. When he ambulates pain does not improve. [facility] Medical History (Updated 11/17/24 @ 15:39 by Mahendra De La Torre MD) Pacemaker TMJ dysfunction B12 deficiency History of kidney stones Anxiety Arthritis Depression BPH (benign prostatic hyperplasia) Surgical History S/P cardiac catheterization Hx of sinus surgery History of tonsillectomy History of prostate biopsy History of left inguinal hernia repair History of carpal tunnel release History of colonoscopy (~06/22/14) Family History Father No problems noted. Mother No problems noted. Social History Are you a primary zoo caretaker to a significant other at home: No Do you presently have visiting nurse or other home services: No Alcohol intake: never Patient Tobacco Use Status: Never used Tobacco Physical Exam Vital Signs: Last Vital Signs Pulse 96 11/17/24 14:50 BP 110/60 11/17/24 14:50 Pulse Ox 98 11/17/24 14:50 Oxygen Delivery Method Room Air 11/17/24 14:50 BMI result Body Mass Index 24.3 Const Other: General: Comfortable Skin: No lesions seen MSK: No spinous process tenderness. No paraspinal muscle tenderness. Bilateral trochanteric bursa tenderness right worse than left. He has tenderness of his right gluteal muscles. Normal lumbar flexion. Negative straight leg raising test. Office Procedures AMB Joint Injection/Aspiration Joint Injection/Aspiration Details: Right trochanteric bursa Prep: site was prepped using aseptic technique Injected: 40 mg of, Kenalog, with 1 mL of and 1% plain lidocaine Procedure: Informed verbal consent was obtained. The patient tolerated the procedure well. Postprocedure protocol was discussed with patient. Coding - Large joint Procedure code (CPT) selection complete Office Meds lidocaine (PF) 10 mg/mL (1 %) injection solution Performing Provider: Mahendra De La Torre MD Performing Location: [facility] [place] [facility] Administered by: Mahendra De La Torre MD on 11/17/24 15:38 Dose Route Admin Location Dispensed Lot Number Expiration Date [facility] [place] Data Control Clerk Supervisor 10 mg Infiltration 2 mL [id number] FRESEN IUS KABI 2 Total Dispensed Waste 2 mL 50 % Kenalog 40 mg/mL suspension for injection Performing Provider: Mahendra De La Torre MD Performing Location: [facility] [place] [facility] Administered by: Mahendra De La Torre MD on 11/17/24 15:38 Dose Route Admin Location Dispensed Lot Number Expiration Date [facility] [place] Data Control Clerk Supervisor 40 mg intrabursal 1 mL [id number] [employer] L [employer] Total Dispensed Waste 1 mL 0 % Assessment & Plan Assessment & Plan (1) Trochanteric bursitis, right hip: Comment: Pain is uncontrolled Code(s): M70.61 - Trochanteric bursitis, right hip Category: Medical Plan: Patient received right trochanteric bursa cortisone injection Return to clinic July 2025 or sooner if needed Orders: Orders AMB Joint Injection/Aspiration Today M70.61 - Trochanteric bursitis, right hip Coding Level of Care Code Est Pt Level 3 (28790) Complex EM visit Add On G2211 Diagnoses Trochanteric bursitis, right hip M70.61 CPT Codes Coding - 12264 Large joint: 71444 - Large joint ([id number])
[2024-11-17 14:50] VITALS: BP 110/60; PULSE 96; O2SAT 98; BMI 24.3
== END 2024-11-17 15:10 | disposition home or self-care (01) ==
LOC: HO.RHES 14:46
PROVIDERS: PCP Internal Medicine; Visit Provider Internal Medicine Rheumatology
DX: M70.61 Trochanteric bursitis, right hip (principal)
CPT/HCPCS: 20610; 99213

== ENCOUNTER → 2024-11-17 14:46 | Outpatient (BNVA) | payer MEDICARE, SELFPAY | PROVIDERS: PCP Internal Medicine; Visit Provider Internal Medicine Rheumatology | DX: M70.61 Trochanteric bursitis, right hip (principal) | CPT/HCPCS: 20610; 99212; J2003; J3300 ==

== ENCOUNTER 2024-11-21 09:48 | Outpatient (AMB) | payer MEDICARE, SELFPAY ==
[2024-11-21 09:54] VITALS: BP 128/68; PULSE 79; BMI 24.0
--- NOTE | 2024-11-21 09:54 | A.OFFVIS_ITS ---
Vital Signs 11/21/24 09:54 Height 5 ft 11 in Weight 171 lb 15.369 oz BMI 24.0 BP 128/68 Blood Pressure Location Lt brachial Position Sitting Pulse 79 Pulse Source Pulse Oximeter Intake Visit Reasons: 4 mth f/up Allergies Sulfa (Sulfonamide Antibiotics) Allergy (Unknown, Verified 08/18/24 14:50) hives sulfamethoxazole (From Bactrim) Allergy (Unknown, Verified 08/18/24 14:50) HIVES trimethoprim (From Bactrim) Allergy (Unknown, Verified 08/18/24 14:50) HIVES Medication List - Last Reconciled 11/21/24 by Kwame Patricio MD arm brace (Wrist Brace) As directed left [facility] splint custom Dx: [facility] osteoarthritis arm brace (Wrist Brace) As directed left [facility] custom splint Dx: osteoarthritis finasteride 5 mg PO DAILY 90 days fluticasone propionate 50 mcg/actuation 1 spray intranasal DAILY mv,Ca,dkj-wfci-UR-lycopene 8 mg iron- 200 mcg-600 mcg (Centrum Ultra Men's) tabs PO sacubitril-valsartan 24-26 mg (Entresto) 1 tab PO BID sertraline 100 mg PO DAILY tafamidis 61 mg PO DAILY HPI Comments Details: Raúl returns for follow-up. To recall, he originally came for hernia surgery and noted to have left bundle- branch block pattern on the EKG. Subsequently, cardiac workup showed cardiomyopathy. During a prior visit, he was describing a sensation of ' truck parked on his chest'. He was also having some shortness of breath at times. This led to cardiac catheterization but normal coronary arteries. Then, he underwent further workup with PYP scan that was positive for amyloid. He has seen heart failure specialist at [facility] and has been put on Tifamidis. Also saw EP and underwent Bi V ICD. Overall, he is stable from cardiac and has got no new concerns like angina or shortness of breath. He describes various other symptoms like back pain, heartburn, indigestion type symptoms. [facility] Medical History (Updated 11/17/24 @ 15:39 by Mahendra De La Torre MD) Pacemaker TMJ dysfunction B12 deficiency History of kidney stones Anxiety Arthritis Depression BPH (benign prostatic hyperplasia) Surgical History S/P cardiac catheterization Hx of sinus surgery History of tonsillectomy History of prostate biopsy History of left inguinal hernia repair History of carpal tunnel release History of colonoscopy (~06/22/14) Family History Father No problems noted. Mother No problems noted. Social History Are you a primary youth care professional to a significant other at home: No Do you presently have visiting nurse or other home services: No Alcohol intake: never Patient Tobacco Use Status: Never used Tobacco Review of Systems Const Denies weakness ENT Denies dizziness Card Denies chest pain, Denies chest pain with activity, Denies syncope, Denies rapid heart rate, Denies pedal edema, Denies edema, Denies leg edema, Denies lightheadedness, Denies palpitations, Denies dyspnea, Denies dyspnea on exertion and Denies orthopnea Resp Denies cough, Denies dyspnea and Denies dyspnea on exertion GI Denies hematochezia and Denies change in stool character Musc Denies abnormal gait, Denies muscle cramps, Denies muscle weakness, Denies numbness, Denies radiating pain into limb and Denies tingling Neuro Denies abnormal gait, Denies dizziness, Denies syncope, Denies numbness, Denies tingling and Denies weakness Endo Denies palpitations Physical Exam Vital Signs: Last Vital Signs Pulse 79 11/21/24 09:54 BP 128/68 11/21/24 09:54 BMI result Body Mass Index 24.0 Const General: comfortable and no acute distress Orientation/consciousness: patient oriented x3 HEENT Other: Unremarkable Head: Yes normal to inspection Neck Neck: Yes normal visual inspection Chest Chest palpation & inspection: normal inspection of the chest Resp Auscultation: clear to auscultation bilaterally Cardio Palpation: normal PMI Heart sounds: S1 normal heart sound present, S2 normal heart sound present, no gallops, no murmurs and no rubs GI Palpation (GI): Soft to palpation Back/Spine/Pelvis Other: unremarkable Skin General skin exam: no rashes or lesions noted Neuro General: patient oriented x3 Extrem General: Yes normal to inspection Psych Mental Status: mental status grossly normal Assessment & Plan Assessment & Plan (1) NICM (nonischemic cardiomyopathy): Code(s): I42.8 - Other cardiomyopathies Category: Medical (2) LBBB (left bundle branch block): Code(s): I44.7 - Left bundle-branch block, unspecified Category: Medical (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 In the last echocardiogram, LVEF is 30-35%. Prior to that, it has been described to be 35-40%. Overall, moderately reduced. Cardiac catheterization from 08/2023 shows normal coronary arteries. 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 Cardiac MRI findings consistent with infiltrative cardiomyopathy, amlodipine rather than sarcoid. Cannot exclude myocarditis. For medications, on Entresto. Last time we did try a small dose of beta- blockers but does not appear that he corrected it from pharmacy. We will recent at this again. No need for any diuretics or other medications as he is euvolemic and also runs low blood pressures. Otherwise, we will recheck ICD with next visit. For the amyloid, currently on Tafamadis. He can keep follow up with the heart failure team for further management of that. Follow-up 6 months. Medications: New metoprolol succinate ER (Toprol XL) 12.5 mg (1/2 x 25 mg) PO DAILY 45 tabs 1RF 90 days Coding Level of Care Code Est Pt Level 4 (99467) Complex EM visit Add On G2211 Diagnoses NICM (nonischemic cardiomyopathy) I42.8 LBBB (left bundle branch block) I44.7 Amyloid heart disease E85.4; I43
== END 2024-11-21 10:15 | disposition home or self-care (01) ==
LOC: HO.HCS 09:49
PROVIDERS: PCP Internal Medicine; Visit Provider Internal Medicine
DX: I42.8 Other cardiomyopathies (principal); I44.7 Left bundle-branch block, unspecified; E85.4 Organ-limited amyloidosis; I43 Cardiomyopathy in diseases classified elsewhere
CPT/HCPCS: 99214; G2211

== ENCOUNTER → 2024-11-21 09:48 | Outpatient (BNVA) | payer MEDICARE, SELFPAY | PROVIDERS: PCP Internal Medicine; Visit Provider Internal Medicine | DX: I42.8 Other cardiomyopathies (principal); I44.7 Left bundle-branch block, unspecified; E85.4 Organ-limited amyloidosis; I43 Cardiomyopathy in diseases classified elsewhere | CPT/HCPCS: 99212 ==

== ENCOUNTER → 2024-11-28 23:59 | Outpatient (BNV) | payer MEDICARE, SELFPAY ==
--- NOTE | 2024-12-01 20:52 | MHC.OFFVIS ---
Intake Visit Reasons: Remote device check- [employer] Allergies Sulfa (Sulfonamide Antibiotics) Allergy (Unknown, Verified 08/18/24 14:50) hives sulfamethoxazole (From Bactrim) Allergy (Unknown, Verified 08/18/24 14:50) HIVES trimethoprim (From Bactrim) Allergy (Unknown, Verified 08/18/24 14:50) HIVES [facility] Medical History (Updated 12/01/24 @ 20:52 by Kwame Patricio MD) Pacemaker TMJ dysfunction B12 deficiency History of kidney stones Anxiety Arthritis Depression BPH (benign prostatic hyperplasia) Surgical History S/P cardiac catheterization Hx of sinus surgery History of tonsillectomy History of prostate biopsy History of left inguinal hernia repair History of carpal tunnel release History of colonoscopy (~06/22/14) Family History Father No problems noted. Mother No problems noted. Social History Are you a primary primary care nurse to a significant other at home: No Do you presently have visiting nurse or other home services: No Alcohol intake: never Patient Tobacco Use Status: Never used Tobacco Office Procedures Cardiac Device Check Cardiac Device Check Details: Date of service 11/28/2024; Battery life 11 years; normal lead parameters; no treated VT/VF; total COMPUTED TOMOGRAPHY TECHNOLOGIST 97%; normal ICD function. 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
== END ==
PROVIDERS: PCP Internal Medicine; Visit Provider Internal Medicine
DX: E85.4 Organ-limited amyloidosis (principal); I43 Cardiomyopathy in diseases classified elsewhere; I44.7 Left bundle-branch block, unspecified; Z95.810 Presence of automatic (implantable) cardiac defibrillator
CPT/HCPCS: 93295

== ENCOUNTER → 2024-11-28 23:59 | Outpatient (BNV) | payer MEDICARE, SELFPAY ==
--- NOTE | 2024-12-01 20:50 | A.OFFVIS_ITS ---
Intake Visit Reasons: Remote HF monitoring- [employer] Allergies Sulfa (Sulfonamide Antibiotics) Allergy (Unknown, Verified 08/18/24 14:50) hives sulfamethoxazole (From Bactrim) Allergy (Unknown, Verified 08/18/24 14:50) HIVES trimethoprim (From Bactrim) Allergy (Unknown, Verified 08/18/24 14:50) HIVES [facility] Medical History (Updated 12/01/24 @ 20:52 by Kwame Patricio MD) Pacemaker TMJ dysfunction B12 deficiency History of kidney stones Anxiety Arthritis Depression BPH (benign prostatic hyperplasia) Surgical History S/P cardiac catheterization Hx of sinus surgery History of tonsillectomy History of prostate biopsy History of left inguinal hernia repair History of carpal tunnel release History of colonoscopy (~06/22/14) Family History Father No problems noted. Mother No problems noted. Social History Are you a primary critical care technician to a significant other at home: No Do you presently have visiting nurse or other home services: No Alcohol intake: never Patient Tobacco Use Status: Never used Tobacco Office Procedures Cardiac Device Check Cardiac Device Check Details: Date of service- 11/28/2024; based on impedance data and physiological variables, there is no evidence of worsening congestive heart failure. 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
== END ==
PROVIDERS: PCP Internal Medicine; Visit Provider Internal Medicine
DX: E85.4 Organ-limited amyloidosis (principal); I43 Cardiomyopathy in diseases classified elsewhere; Z95.810 Presence of automatic (implantable) cardiac defibrillator
CPT/HCPCS: 93297

== ENCOUNTER 2025-02-27 09:22 | Outpatient (AMB) | payer MEDICARE, SELFPAY ==
--- NOTE | 2025-02-27 09:23 | MHC.PC.OV ---
Vital Signs 02/27/25 09:27 Height 5 ft 11.65 in Weight 177 lb BMI 24.2 BP 111/59 L Blood Pressure Location Rt brachial Position Sitting Respiration 16 Pulse 94 Pulse Source Pulse Oximeter Temp 97.6 F Temp Source Temporal Artery Scan Pulse Oximetry (%) 97 Oxygen Delivery Method Room Air Intake Visit Reasons: Establish Care/ Dr. Wang Sales Order Specialist Required: No Accompanied by: Self / Same As Patient Allergies Sulfa (Sulfonamide Antibiotics) Allergy (Unknown, Verified 02/27/25 09:23) hives sulfamethoxazole (From Bactrim) Allergy (Unknown, Verified 02/27/25 09:23) HIVES trimethoprim (From Bactrim) Allergy (Unknown, Verified 02/27/25 09:23) HIVES Tobacco use date assessed: 02/27/25 Fall risk assessment: No Falls in past year Last assessed Fall Risk: 02/27/25 Dental Screening Dental Screen Date: 02/27/25 Did you have a dental visit in the last 12 months?: Yes Did you have a dental problem in the last 6 months where you did not have access to dental care?: No Was dental information given to patient?: Patient has dentist HPI HPI Comments History of Present Illness Details History of Present Illness - The patient is a 74 year old individual presenting with multiple health concerns, including skin changes, back pain, and gastrointestinal symptoms. - The patient reports having amyloidosis and sees a specialist, Dr. Noble, every six months. - The patient has been experiencing significant back pain for about four months, starting after a pacemaker implantation. - The pain is most severe for the first 15-20 steps after getting up, radiates down both legs, and then improves with continued walking. - The patient began physical therapy last week. - For the past few months, the patient has experienced postprandial symptoms a couple of times a week, including feeling bloated and nauseous as if going to vomit, sometimes leading to emesis. - These symptoms are associated with an unintentional 10-pound weight loss, though the patient's weight has been stable for the last six months. - Bowel movements are generally normal, with diarrhea occurring only during episodes of stomach upset. - The patient notes worsening skin spots and expresses frustration with difficulties in scheduling a dermatology appointment. - The patient's last colonoscopy was in 2014 and was normal, with a history of screenings every five years for the last 30 years. 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 - Substance Use: Denies any history of smoking or alcohol consumption. - Functional Status: The patient drives, including at night, and reports being able to walk a couple of miles. Results - Colonoscopy (2014): Results were normal with no polyps found. [facility] Medical History Pacemaker TMJ dysfunction B12 deficiency History of kidney stones Anxiety Arthritis Depression BPH (benign prostatic hyperplasia) Surgical History S/P cardiac catheterization Hx of sinus surgery History of tonsillectomy History of prostate biopsy History of left inguinal hernia repair History of carpal tunnel release History of colonoscopy (~06/22/14) Family History Father No problems noted. Mother No problems noted. Social History (Updated 02/27/25 @ 09:31 by IVONNE Soares) Alcohol intake: current Alcohol intake frequency: does not drink Patient Tobacco Use Status: Never used Tobacco service: No Current occupational status: retired Cognitive needs: No Hearing needs: No Vision needs: No Questionnaire PHQ-9 Over the last 2 weeks, how often have you been bothered by any of the following problems? 1. Little interest or pleasure in doing things: nearly every day 2. Feeling down, depressed, or hopeless: several days 3. Trouble falling or staying asleep, or sleeping too much: nearly every day 4. Feeling tired or having little energy: several days 5. Poor appetite or overeating: not at all 6. Feeling bad about yourself - or that you are a failure or have let yourself or your family down: not at all 7. Trouble concentrating on things, such as reading the newspaper or watching television: not at all 8. Moving or speaking so slowly that other people could have noticed. Or the opposite - being so fidgety or restless that you have been moving around a lot more than usual: not at all 9. Thoughts that you would be better off or of hurting yourself in some way: not at all Total score: 8 Source: Developed by Drs. Colton Greer, Leonie Domingo, Allan Wall and colleagues, with an educational susan from [employer]. Thrive Questionnaire Date Thrive assessed: 02/27/25 I am a: Patient What is your living situation today?: I have a steady place to live Within the past 12 months, did the food you bought not last and you didn't have the money to get more?: Never true Within the past 12 months, did you worry whether your food would run out before you got money to buy more?: Never true Do you have trouble paying for medicines?: No Do you have trouble getting transportation to medical appointments?: No Do you have trouble paying your heating and electricity bill?: No Do you have trouble taking care of your child, family member or friend?: No Do you have trouble with day-to-day activities such as bathing, preparing meals, shopping, managing finances, etc.?: No Are you currently unemployed and looking for a job?: No Are you interested in more education?: No Please select the resources that you would like help with: None THRIVE Score: 0 AUDIT C Alcohol Use Questionnaire (AUDIT-C) 1. How often do you have a drink containing alcohol?: Never 3. How often do you have six or more drinks on one occasion?: Never Total Score: 0 MARTELL-7 AMB Questionnaire MARTELL-7 Date MARTELL - 7 assessed: 02/27/25 Feeling nervous, anxious, or on edge: 0 = Not at all Not being able to stop or control worryin = Several days Worrying too much about different things: 1 = Several days Trouble relaxin = Not at all Being so restless that it is hard to sit still: 0 = Not at all Becoming easily annoyed or irritable: 3 = Nearly every day Feeling afraid as if something awful might happen: 0 = Not at all Total MARTELL-7 score (0-4 normal; 5-9 mild; 10-14 moderate; 15-21 severe): 5 Source: Developed by Drs. Colton Greer, Allan Ward and colleagues, with an educational susan from [employer]. Review of Systems Narrative Review of Systems - Constitutional: Reports an unintentional 10-pound weight loss but has maintained a stable weight for the past 6 months. - Skin: Reports new spots appearing all over. - Gastrointestinal: Reports a good appetite. Reports postprandial bloating, nausea, and occasional vomiting a couple of times per week. Reports diarrhea only when experiencing stomach symptoms. Denies bloody stool. - Musculoskeletal: Reports low back pain that radiates down both legs upon standing and initiating ambulation, which resolves with continued walking. - Genitourinary: Reports difficulty stopping urination. - Eyes: Denies seeing halos. - ENT: Reports excellent hearing. Physical exam (Primary Care) Vital Signs: Last Vital Signs Temp 97.6 F 02/27/25 09:27 Pulse 94 02/27/25 09:27 Resp 16 02/27/25 09:27 BP 111/59 L 02/27/25 09:27 Pulse Ox 97 02/27/25 09:27 Oxygen Delivery Method Room Air 02/27/25 09:27 BMI result Body Mass Index 24.2 Tobacco/Smoking Status: Tobacco use Status Tobacco use date assessed 02/27/25 02/27/25 09:26 Patient Tobacco Use Status Never used Tobacco 02/27/25 09:31 PHQ-9: PHQ-9 Score PHQ-9: Total score 8 02/27/25 09:34 Thrive Assessment: Date of Thrive Assessment Date Thrive assessed 02/27/25 02/27/25 09:26 Narrative Physical Exam General: Cooperative and healthy appearing Nutritional Appearance: Well nourished Orientation/consciousness: Patient oriented x3 Limitations: No limitations Head: Normal to inspection General: Appearance normal, both eyes and all related structures Neck: Normal visual inspection Chest: Normal palpation of entire chest wall Respiratory: Normal respiratory effort Neurology: Patient oriented x3 Office Procedures Flu Questionnaire Does the patient have a severe egg allergy?: No Does the patient have severe life threatening allergies?: No Does the patient have a fever or illness today?: No Has the patient ever had Guillain-Butler Syndrome?: No Has the patient ever had any past reaction to a flu shot?: No Immunizations Fluarix [id number] (PF) 45 mcg (15 mcg x 3)/0.5 mL IM syringe Performing Provider: Chip Block MD [facility] [place] Documented (not given) by: IVONNE Soares on 02/27/25 09:35 Reason Not Given: Received Previously Coding Level of Care Code Est Pt Level 4 (31063) Diagnoses Peptic ulcer disease K27.9 Assessment & Plan Assessment & Plan (1) Peptic ulcer disease: Code(s): K27.9 - Peptic ulcer, site unspecified, unspecified as acute or chronic, without hemorrhage or perforation Plan Plan - For the low back pain, the patient will continue with physical therapy. - If the back pain persists after completing physical therapy, an MRI of the lower back will be ordered. - Regarding the gastrointestinal symptoms, a medication will be prescribed to alleviate symptoms. - A referral will be placed to a pie baker, Dr. Davis, for an esophagogastroduodenoscopy (EGD) to evaluate the stomach. - Blood work will be ordered to check for anemia and other potential issues. - A skin check was performed during the visit, and the patient was reassured that the spots are age-related and not suspicious for cancer. Discussion Notes I explained to the patient that amyloidosis is caused by the deposition of an abnormal protein called amyloid in various organs, and that symptoms depend on the organ affected. I noted that the patient's back pain symptoms, which improve with walking, are the opposite of what is typically seen with spinal stenosis. We discussed the plan for the back pain, which is to complete the current course of physical therapy, with a follow-up MRI of the lower back if symptoms do not resolve. Regarding the gastrointestinal issues, I recommended blood work, a medication to help with symptoms, and a referral to a pie baker for an endoscopy to investigate further. After performing a skin check, I reassured the patient that the skin spots are age-related and not suspicious for malignancy. I also addressed the patient's concerns about communication, clarifying that blood work orders are electronic and that appointment reminders should come via phone call or text. Patient Instructions - Continue with your physical therapy for your back pain. - Go to the lab on [employer] for blood work. You do not need a paper order. - You will receive a call from a stomach specialist's office to schedule an endoscopy, which is a procedure to look at your stomach. - We will prescribe a medication to help with your stomach bloating and nausea. - The spots on your skin were checked and are not concerning for cancer. Orders: Orders Influenza [id number] Immunization Today Z23 - Encounter for immunization
[2025-02-27 09:27] VITALS: BP 111/59; PULSE 94; RESP 16; TEMP 36.4; O2SAT 97; BMI 24.2
== END 2025-02-27 09:53 | disposition home or self-care (01) ==
LOC: HO.HMCSH 09:22
PROVIDERS: PCP Internal Medicine; Visit Provider Internal Medicine
DX: Z23 Encounter for immunization (principal); K27.9 Peptic ulcer, site unspecified, unspecified as acute or chronic, without hemorrhage or perforation

== ENCOUNTER → 2025-02-27 09:22 | Outpatient (BNVA) | payer MEDICARE, SELFPAY | PROVIDERS: PCP Internal Medicine; Visit Provider Internal Medicine | DX: M54.50 Low back pain, unspecified (principal); R23.9 Unspecified skin changes; R11.0 Nausea; R14.0 Abdominal distension (gaseous); R19.7 Diarrhea, unspecified; Z13.31 Encounter for screening for depression; K27.9 Peptic ulcer, site unspecified, unspecified as acute or chronic, without hemorrhage or perforation | CPT/HCPCS: 90471; 96127; 99212 ==

== ENCOUNTER → 2025-03-07 09:22 | Outpatient (BNV) | payer MEDICARE, SELFPAY | PROVIDERS: PCP Internal Medicine; Visit Provider Internal Medicine | DX: Z45.02 Encounter for adjustment and management of automatic implantable cardiac defibrillator (principal) | CPT/HCPCS: 93295 ==

== ENCOUNTER 2025-03-20 10:52 | Outpatient (RCR) | payer MEDICARE, SELFPAY ==
--- NOTE | 2025-02-20 10:50 | MHC.PT.EP ---
[facility] [place] Office [place] [facility] [place] Office [address] Gwen Lujan [address] [phone] F: [phone] F: [phone] F: [phone] F: [phone] Physical Therapy Plan of Care Date of Evaluation: 02/20/25 Date of Surgery: NA Diagnosis: Low back pain Assessment: Raúl is a 74 year old male who is referred to PT for low back pain . He denies any trauma or falls however his pain started after minimizing exercises and movements due to pacemaker placement. On PT examination he presents with TTP over B SI, 4-6/10 pain with sit to stand, rolling in bed, going up the stairs, pain with lumbar extension, decreased core and B LE strength, altered posture and altered gait. He lives with his and is independent with all ADLS but has pain with carrying his dog up the stairs and sit to stand transition. He would benefit from skilled PT to address the aforementioned impairments and improve tolerance to functional activities. Frequency and Duration: The patient will be seen 2/week for 5 weeks Short Term Goals: 1. Pt will have 50% decrease in pain which will enable him to perform rolling in bed without pain in 2 weeks 2. Pt will be able to move trunk through all planes of motion which will enable him to perform sit to stand without pain in 3 weeks Bale Breaker Operator Goals: 1. Pt will demonstrate an increase in muscle strength by 1 grade which will enable him to negotiate stairs without pain in 5 weeks 2. Pt will be independent with all HEP for symptom management and maintenance following d/c in 5 weeks Treatment Plan: Modalities to reduce pain, spasms and effusion. Manual therapy to restore motion and function. Therapeutic exercise to improve strength and flexibility. Neuromuscular re-education for posture and balance. Therapeutic activities to return to functional activities of daily living. Electronically signed by: Peggy Weston PT DPT Please sign and return to therapist. Thank you for your referral.
--- NOTE | 2025-04-04 14:20 | MHC.PT.DC ---
[facility] [place] Office [place] Office [place] Office [address] Gwen Lujan [address] [phone] F: [phone] F: [phone] F: [phone] F: [phone] Physical Therapy Discharge Report Diagnosis: Low back pain Date of Surgery: NA Date of Evaluation: 02/20/25 Date of Discharge: 04/04/25 Treatments to Date: 8 Cancellations to Date: 0 No Shows to Date: 0 Discharge Status: Discharge Summary: Raúl arrived stating his pain is about the same. He has attended 8 PT visits and has not had any improvements with PT. He is independent with all HEPs. I recommended continuing PT 1/week for 2 more weeks however he stated that he feels ready to be done today. He is therefore being d/c from PT. All HEPs reviewed with him. Electronically signed by: Peggy Weston, PT DPT Please sign and return to therapist. Thank you for your referral.
== END 2025-04-04 14:21 | disposition home or self-care (01) ==
LOC: HO.PT 10:52
PROVIDERS: PCP Internal Medicine; Visit Provider Internal Medicine Rheumatology
DX: M54.50 Low back pain, unspecified (principal)
CPT/HCPCS: 97110; 97112; 97161; 97530

== ENCOUNTER → 2025-03-29 10:05 | Outpatient (BNV) | payer MEDICARE, SELFPAY | PROVIDERS: PCP Internal Medicine; Visit Provider Internal Medicine | DX: Z45.018 Encounter for adjustment and management of other part of cardiac pacemaker (principal) | CPT/HCPCS: 93297 ==